=== PATIENT | female | born 1995 | race Caucasian/White ===

== ENCOUNTER 2016-03-28 16:26 | Inpatient (IN) | payer BC ==
[2016-03-28] MEDS ORDERED: RINGERS SOLUTION,LACTATED 1,000 ML IV PRN (18:01)
[2016-03-28] MEDS ORDERED: DINOPROSTONE 10 MG VAGINAL INSERT.SR PV PRN (18:17)
[2016-03-28 19:01] LABS: APPEARANCE,URINE SLIGHTLY-CLOUDY; BILIRUBIN,URINE NEGATIVE (NEGATIVE); GLUCOSE, URINE NEGATIVE (NEGATIVE); KETONES,URINE NEGATIVE (NEGATIVE); LEUKOCYTE ESTERASE,URINE TRACE (NEGATIVE); NITRITE,URINE NEGATIVE (NEGATIVE); PROTEIN,URINE NEGATIVE (NEGATIVE); URINE SPECIFIC GRAVITY 1.006; UROBILINOGEN,URINE NEGATIVE mg/dL (<2.0)
[2016-03-28 19:18] LABS: URINE BARBITURATES SCREEN NEGATIVE; URINE METHADONE SCREEN NEGATIVE; URINE PHENCYCLIDINE SCREEN NEGATIVE
[2016-03-28] MEDS ORDERED: DINOPROSTONE 10 MG VAGINAL INSERT.SR ONE (19:18)
[2016-03-28 19:22] LABS: ABSOLUTE EOSINOPHILS # (AUTO) 0.1 10^3/uL (0.0-0.6); ABSOLUTE LYMPHOCYTES (AUTO) 2.8 10^3/uL (0.5-4.7); ABSOLUTE NEUT (AUTO) 7.9 10^3/uL (1.7-8.2); BASOPHILS % (AUTO) 0.2 % (0-2); EOSINOPHILS % (AUTO) 0.8 % (0-6); HEMATOCRIT 36.4 % (36.0-47.0); HEMOGLOBIN 11.9 g/dL (12.0-15.5); HGB HCT DIFFERENCE -0.7; LYMPHOCYTES % (AUTO) 23.7 % (13-45); MEAN CORPUSCULAR HEMOGLOBIN 28.2 pg (27.0-33.4); MEAN CORPUSCULAR HGB CONC 32.8 g/dL (32.0-36.0); MEAN CORPUSCULAR VOLUME 86 fl (80-97); MONOCYTES % (AUTO) 8.5 % (3-13); RED BLOOD COUNT 4.23 10^6/uL (3.72-5.28); RED CELL DISTRIBUTION WIDTH 14.7 % (11.5-14.0); SEGMENTED NEUTROPHILS % (AUTO) 66.8 % (42-78); WHITE BLOOD COUNT 11.8 10^3/uL (4.0-10.5)
[2016-03-28] MEDS ORDERED: MAG HYDROX/AL HYDROX/SIMETH SUSP 30 ML UDCUP ONE (19:44)
--- NOTE | 2016-03-28 20:01 | L&D Flow Sheet ---
LD Flowsheet Datetime Report Generated by CPN: 03/28/2016 20:00 Datetime: 03/28/2016 19:43 Antiemetics/Antacids: Maalox PO (ml) @ 30 (Jennifer Mcfarlane, RN) Datetime: 03/28/2016 19:32 Dilatation (cm): 1.0 (Jennifer Mcfarlane RN) Effacement (%): 50 (Jennifer Mcfarlane RN) Station: -3 (Jennifer Mcfarlane RN) Exam by: Emely Lei RN (Jennifer Mcfarlane RN) Cervical Ripening Agents: Cervidil (Jennifer Mcfarlane RN) Medication Comments: Cervidil placed per protocol (Jennifer Mcfarlane RN) Datetime: 03/28/2016 19:30 Stage of : Antepartum (Jennifer Mcfarlane RN) Temperature (F): 98.8 (Jennifer Mcfarlane RN) Temperature (C): 37.1 (QS system process) Temperature Route: Oral (Jennifer Mcfarlane RN) Pain Scale: 0 (Jennifer Mcfarlane RN) Pain Presence: None/Denies (Jennifer Mcfarlane RN) Pain Type: N/A (Jennifer Mcfarlane RN) Level of Consciousness: Fully Conscious (Jennifer Mcfarlane RN) DTR's/Clonus: DTRs 2+; No Clonus (Jennifer Mcfarlane RN) Headache: Denies (Jennifer Mcfarlane RN) Breath Sounds, Left: Clear and Equal (Jennifer Mcfarlane RN) Breath Sounds, Right: Clear and Equal (Jennifer Mcfarlane RN) Nausea/Vomiting: Denies (Jennifer Mcfarlane RN) RUQ Epigastric Pain: indigestion (Jennifer Mcfarlane RN) Instructional Method: Verbal; Patient Instructed; Family/Support Person Instructed; Verbalized Understanding (Jennifer Mcfarlane RN) Plan of Care: Plan of Care Discussed; Induction (Jennifer Mcfarlane RN) Unit Routine: [place] to Room; Call Antoine; Bed; Visiting Policy; Waiting Areas; Unit Personnel; Handwashing; Monitoring; IV Pumps; Diet/Nutrition Services; Bathroom Privileges; Medications (Jennifer Mcfarlane RN) Labor/Induction: Cervical Ripening; Induction (Jennifer Mcfarlane RN) Medications: Cervical Ripening (Jennifer Mcfarlane RN) Related: Common Discomforts of ; Nutrition; Hydration; Activity and Rest (Jennifer Mcfarlane RN) LaborFlag: Antepartum (QS system process) Datetime: 03/28/2016 19:27 I/O Interventions: Up to BR (Jennifer Mcfarlane RN) Datetime: 03/28/2016 19:25 IV/Blood Work: IV Started; IV Bolus Started; New IV Bag Hung (Jennifer Mcfarlane RN) Datetime: 03/28/2016 19:03 Pain Scale: 0 (Mavelyn Lew, SN) Pain Presence: None/Denies (Mavelyn Lew, SN) Pain Type: N/A (Mavelyn Lew, SN) Pain Goal: 0 (Mavelyn Lew, SN) Pain Relief Measures: Comfort Measures (Mavelyn Lew, SN) Membrane Status: Intact (Mavelyn Lew, SN) Vaginal Bleeding: None (Mavelyn Lew, SN) Level of Consciousness: Fully Conscious (Mavelyn Lew, SN) DTR's/Clonus: DTRs 2+; No Clonus (Mavelyn Lew, SN) Headache: Denies (Mavelyn Lew, SN) Breath Sounds, Left: Clear and Equal (Mavelyn Lew, SN) Breath Sounds, Right: Clear and Equal (Mavelyn Lew, SN) Nausea/Vomiting: Denies (Mavelyn Lew, SN) RUQ Epigastric Pain: Denies (Mavelyn Lew, SN) Datetime: 03/28/2016 18:59 NBP Sys/Maren/Mean (mmHg): 109 (QS system process) : 58 (QS system process) : 77 (QS system process) Pulse: 80 (QS system process) Datetime: 03/28/2016 18:58 NBP Sys/Maren/Mean (mmHg): 127 (QS system process) : 59 (QS system process) : 85 (QS system process) Pulse: 85 (QS system process) Datetime: 03/28/2016 18:56 NBP Sys/Maren/Mean (mmHg): 126 (QS system process) : 57 (QS system process) : 82 (QS system process) Pulse: 83 (QS system process) Datetime: 03/28/2016 18:54 NBP Sys/Maren/Mean (mmHg): 129 (QS system process) : 82 (QS system process) : 100 (QS system process) Pulse: 88 (QS system process) Datetime: 03/28/2016 18:53 NBP Sys/Maren/Mean (mmHg): 127 (QS system process) : 83 (QS system process) : 99 (QS system process) Pulse: 93 (QS system process) Datetime: 03/28/2016 18:52 NBP Sys/Maren/Mean (mmHg): 119 (QS system process) : 78 (QS system process) : 94 (QS system process) Pulse: 85 (QS system process) Datetime: 03/28/2016 18:51 NBP Sys/Maren/Mean (mmHg): 120 (QS system process) : 76 (QS system process) : 92 (QS system process) Pulse: 92 (QS system process) Datetime: 03/28/2016 18:50 NBP Sys/Maren/Mean (mmHg): 124 (QS system process) : 78 (QS system process) : 96 (QS system process) Pulse: 93 (QS system process) Datetime: 03/28/2016 18:48 NBP Sys/Maren/Mean (mmHg): 117 (QS system process) : 71 (QS system process) : 87 (QS system process) Pulse: 79 (QS system process)
--- NOTE | 2016-03-29 06:23 | L&D General Admission ---
General Admit Datetime Report Generated by CPN: 03/29/2016 06:00 INFORMATION Patient Age: 21 (03/11/2016 14:14:QS system process) EDC: 03/20/2016 00:00 (03/28/2016 17:35:SN Devyn) EDC per Ultrasound: 03/14/2016 00:00 (03/28/2016 17:35:SN Devyn) LMP: 06/14/2015 00:00 (03/28/2016 17:35:SN Devyn) : 1 (03/28/2016 17:35:SN Devyn) Para: 0 (03/28/2016 17:35:SN Devyn) Term: 0 (03/28/2016 17:35:SN Devyn) : 0 (03/28/2016 17:35:SN Devyn) Spontaneous Abortions: 0 (03/28/2016 17:35:SN Devyn) Induced Abortions: 0 (03/28/2016 17:35:Mavelyn Lew, SN) Livin (03/28/2016 17:35:Mavelyn Lew, SN) Cesareans: 0 (03/28/2016 17:35:Mavelyn Lew, SN) VBACs: 0 (03/28/2016 17:35:Mavelyn Lew, SN) Ectopic: 0 (03/28/2016 17:35:Mavelyn Lew, SN) Multiple Births: 0 (03/28/2016 17:35:Mavelyn Lew, SN) Baby, Number in Womb: 1 (03/28/2016 17:35:Mavelyn Lew, SN) CARE Primary Industrial Technologist: [facility] (03/28/2016 17:35:Mavelyn Lew, SN) Month of 1st Visit: September 2015 (03/28/2016 17:35:Mavelyn Lew, SN) Adequate Care: Yes (03/28/2016 17:35:Mavelyn Lew, SN) Prepregnancy Weight (lb): 174 (03/28/2016 17:35:Mavelyn Lew, SN) Prepregnancy Weight (kg): 79.1 (03/28/2016 17:35:QS system process) Height (in): 61 (03/28/2016 18:48:QS system process) ALLERGIES Medication Allergy: No (03/28/2016 17:35:Mavelyn Lew, SN) Medication Allergies: No Known Allergies (01/12/2016) (03/11/2016 14:14:QS system process) COMMUNICATION Primary Language: Gabonese (03/28/2016 17:35:Mavelyn Lew, SN) Medical Tx Preferred Language: Gabonese (03/28/2016 17:35:Mavelyn Lew, SN) Communication Barrier(s): None (03/28/2016 17:35:Mavelyn Lew, SN) DEMOGRAPHICS Address: [address] [place] [id number] (03/11/2016 14:14:QS system process) Zipcode: [address] (03/11/2016 14:14:QS system process) Home (03/11/2016 14:14:QS system process) Work (03/28/2016 18:12:QS system process) SSN: [id number] (03/11/2016 14:14:QS system process) Next of Kin Name: HOA LEROY (03/28/2016 18:12:QS system process) Next of Kin (03/28/2016 18:12:QS system process) Next of Kin Relationship: MO (03/28/2016 18:12:QS system process) Date of : 1995 (03/11/2016 14:14:QS system process) Marital Status: (03/11/2016 14:14:QS system process) Sex: Female (03/11/2016 14:14:QS system process) Race: (03/11/2016 14:14:QS system process) Ethnicity: Non- or (03/11/2016 14:14:QS system process) Yazidism: None (03/11/2016 14:14:QS system process) DRUG AND ALCOHOL USE Alcohol: No (03/28/2016 17:35:Mavelyn Lew, SN) Cigarettes: Never Smoker. [id number] (03/28/2016 17:35:Mavelyn Lew, SN) Marijuana: No (03/28/2016 17:35:Mavelyn Lew, SN) Cocaine: No (03/28/2016 17:35:Mavelyn Lew, SN) Other Illicit Drugs: No (03/28/2016 17:35:Mavelyn Lew, SN) VACCINE HISTORY Influenza Vaccine: Yes (03/28/2016 17:35:Mavelyn Lew, SN) Influenza Date: 12/25/2015 (03/28/2016 17:35:Mavelyn Lew, SN) Pneumococcal Vaccine: No (03/28/2016 17:35:Mavelyn Lew, SN) Tetanus Vaccine: Yes (03/28/2016 17:35:Mavelyn Lew, SN) Tdap Vaccine: Yes (03/28/2016 17:35:Mavelyn Lew, SN) Tdap Date: 12/25/2015 (03/28/2016 17:35:Mavelyn Lew, SN) Hepatitis B Vaccine: Yes (03/28/2016 17:35:Mavelyn Lew, SN) [place]ge Hand: [facility] (03/28/2016 17:35:Mavelyn Lew, SN) Feeding Preference: Breast (03/28/2016 17:35:Mavelyn Lew, SN) Benefit of Breast Feed Discussed: Yes (03/28/2016 17:35:Mavelyn Lew, SN) Circumcision: Yes (03/28/2016 17:35:SN Devyn) Classes Attended: No (03/28/2016 17:35:SN Devyn) Tubal Ligation: No (03/28/2016 17:35:SN Devyn) Tubal Authorization Signed: N/A (03/28/2016 17:35:SN Devyn) Consent: N/A (03/28/2016 17:35:SN Devyn) Consent Signed: N/A (03/28/2016 17:35:SN Devyn) Pain Management Plans: Epidural (03/28/2016 17:35:SN Devyn) Plans for Labor and Delivery: None (03/28/2016 17:35:SN Devyn) Support Person: Luis Daniel Dinero (03/28/2016 17:35:SN Devyn) Support Person Relationship: (03/28/2016 17:35:SN Devyn) Cultural/Spritual Practice: No (03/28/2016 17:35:SN Devyn) Spir/Cult Dietary Needs: No (03/28/2016 17:35:SN Devyn) LIVING SITUATION/DISCHARGE PLAN Living Arrangements: House (03/28/2016 17:35:SN Devyn) Adequate Access to:: Electric; Heat; Refrigeration; Plumbing/Running water; Phone; Transportation (03/28/2016 17:35:SN Devyn) WIC Program: Yes (03/28/2016 17:35:SN Devyn) Discharge Eeg Technologist Person: Luis Daniel Dinero (03/28/2016 17:35:SN Devyn) Person to Help after Discharge: Luis Daniel Dinero (03/28/2016 17:35:SN Devyn) Currently Using Commun Resources: Yes (03/28/2016 17:35:SN Devyn) Outside Agency/Digital Marketing Consultant: No (03/28/2016 17:35:SN Devyn) Car Seat for Discharge: Yes (03/28/2016 17:35:SN Devyn) Adoption Requested: No (03/28/2016 17:35:SN Devyn) Pt Contact w/ Post : N/A (03/28/2016 17:35:SN Devyn) LABS Blood Type: O Positive (03/28/2016 17:35:SN Devyn) Antibody Screen: negative (03/28/2016 17:35:SN Devyn) Rho(G) this : Not Applicable (03/28/2016 17:35:SN Devyn) Hemoglobin: 11.9 L (03/28/2016 18:49:QS system process) Hematocrit: 36.4 (03/28/2016 18:49:QS system process) MCV: 86 (03/28/2016 18:49:QS system process) Group Beta Strep: negative (03/28/2016 17:35:SN Devyn) Gonorrhea: Negative (03/28/2016 17:35:SN Devyn) Chlamydia: Negative (03/28/2016 17:35:SN Devyn) RPR/VDRL: Nonreactive (03/28/2016 17:35:SN Devyn) HIV Exposure Test: Negative (03/28/2016 17:35:SN Devyn) Hepatitis B: Negative (03/28/2016 17:35:SN Devyn) Rubella: Immune (03/28/2016 17:35:SN Devyn) OB/PREVIOUS HISTORY LMP: 06/14/2015 00:00 (03/28/2016 17:35:SN Devyn) Previous Procedures: None (03/28/2016 17:35:SN Devyn) Current Procedures: Ultrasound; NST (03/28/2016 17:35:SN Devyn) History of Previous : No (03/28/2016 17:35:SN Devyn) History of Gestational Diabetes: No (03/28/2016 17:35:SN Devyn) History of PIH: No (03/28/2016 17:35:SN Devyn) History of Incompetent Cervix: No (03/28/2016 17:35:SN Devyn) History of Placenta Previa/Abrup: No (03/28/2016 17:35:SN Devyn) History of Macrosomia: No (03/28/2016 17:35:SN Devyn) History of IUGR: No (03/28/2016 17:35:SN Devyn) History of Hemorrhage: No (03/28/2016 17:35:SN Devyn) History of Loss/Stillborn: No (03/28/2016 17:35:SN Devyn) History of : No (03/28/2016 17:35:SN Devyn) History of D (Rh) Sensitization: No (03/28/2016 17:35:SN Devyn) History Recurrent Loss/Stillborn: No (03/28/2016 17:35:SN Devyn) History Depression/PP Depression: No (03/28/2016 17:35:SN Devyn) History of Uterine Anomaly/SAURABH: No (03/28/2016 17:35:SN Devyn) History of Infertility: No (03/28/2016 17:35:SN Devyn) History of ART Treatment: No (03/28/2016 17:35:SN Devyn) History of SAURABH: No (03/28/2016 17:35:SN Devyn) Comments Obstetrical History: G1 - current - s>d- late entry to care at 15wk (03/28/2016 17:35:SN Devyn) MEDICAL HISTORY Med Hx Diabetes: No (03/28/2016 17:35:SN Devyn) Med Hx Hypertension: No (03/28/2016 17:35:SN Devyn) Med Hx Heart Disease: No (03/28/2016 17:35:SN Devyn) Med Hx Autoimmune Disorder: No (03/28/2016 17:35:SN Devyn) Med Hx Kidney Disease/UTI: No (03/28/2016 17:35:SN Devyn) Med Hx Neurologic/Epilepsy: No (03/28/2016 17:35:SN Devyn) Med Hx Psychiatric Disorders: No (03/28/2016 17:35:SN Devyn) Med Hx Hepatitis/Liver Disease: No (03/28/2016 17:35:SN Devyn) Med Hx Varicosities/Phlebitis: No (03/28/2016 17:35:SN Devyn) Med Hx Thyroid Dysfunction: No (03/28/2016 17:35:SN Devyn) Med Hx Trauma/Violence: No (03/28/2016 17:35:SN Devyn) Med Hx Blood Transfusion: No (03/28/2016 17:35:SN Devyn) Med Hx Pulmonary (Asthma,TB): No (03/28/2016 17:35:SN Devyn) Med Hx Breast: No (03/28/2016 17:35:SN Devyn) Med Hx ESTATE PLANNING DIRECTOR Surgery: No (03/28/2016 17:35:SN Devyn) Med Hx Hospitalization/Surgery: No (03/28/2016 17:35:SN Devyn) Med Hx Anesthetic Complications: No (03/28/2016 17:35:SN Devyn) Med Hx Abnormal Pap Smear: No (03/28/2016 17:35:SN Devyn) Other Medical Diseases: No (03/28/2016 17:35:SN Devyn) Med Hx Significant Family Hx: No (03/28/2016 17:35:SN Devyn) INFECTIOUS HISTORY Inf Hx Gonorrhea: No (03/28/2016 17:35:SN Devyn) Inf Hx Chlamydia: No (03/28/2016 17:35:SN Devyn) Inf Hx Syphilis: No (03/28/2016 17:35:SN Devyn) Inf Hx HIV/AIDS: No (03/28/2016 17:35:SN Devyn) Inf Hx Human Papilloma Virus: No (03/28/2016 17:35:SN Devyn) Inf Hx Pt/Partner Genital Herpes: No (03/28/2016 17:35:SN Devyn) Inf Hx Tuberculosis/Exposure: No (03/28/2016 17:35:SN Devyn) Inf Hx Hepatitis B,C: No (03/28/2016 17:35:SN Devyn) Inf Hx Rash or Viral Illness: No (03/28/2016 17:35:SN Devyn) GENETIC HISTORY Gen Hx Age >=35 at ARELY: No (03/28/2016 17:35:SN Devyn) Gen Hx Thalassemia: No (03/28/2016 17:35:SN Devyn) Gen Hx Congenital Heart Defect: No (03/28/2016 17:35:SN Devyn) Gen Hx Neural Tube Defect: No (03/28/2016 17:35:SN Devyn) Gen Hx Down's Syndrome: No (03/28/2016 17:35:SN Devyn) Gen Hx [place]-Sachs: No (03/28/2016 17:35:SN Devyn) Gen Hx Vannessa: No (03/28/2016 17:35:SN Devyn) Gen Hx Familial Dysautonomia: No (03/28/2016 17:35:SN Devyn) Gen Hx Sickle Cell Disease/Trait: No (03/28/2016 17:35:SN Devyn) Gen Hx Hemophilia/Blood Disorder: No (03/28/2016 17:35:SN Devyn) Gen Hx Muscular Dystrophy: No (03/28/2016 17:35:SN Devyn) Gen Hx Cystic Fibrosis: No (03/28/2016 17:35:SN Devyn) Gen Hx [place] Chorea: No (03/28/2016 17:35:SN Devyn) Gen Hx Mental Retardation/Autism: No (03/28/2016 17:35:SN Devyn) Gen Hx Tested for Fragile X: No (03/28/2016 17:35:SN Devyn) Gen Hx Other Inher/Chromosomal: No (03/28/2016 17:35:SN Devyn) Gen Hx Maternal Metabolic DO: No (03/28/2016 17:35:SN Devyn) Gen Hx Pt Father or FOB Defect: No (03/28/2016 17:35:SN Devyn) Gen Hx Other Genetic History: No (03/28/2016 17:35:SN Devyn) Gen Hx Drugs/Meds since LMP: No (03/28/2016 17:35:SN Devyn)
--- NOTE | 2016-03-29 06:23 | L&D Current Admission ---
Current Admit Datetime Report Generated by CPN: 03/29/2016 06:00 ADMISSION INFORMATION Current Admit Date/Time: 03/28/2016 18:57 (03/28/2016 18:57:SN Devyn) Reason for Admission: Induction of Labor (03/28/2016 18:57:SN Devyn) Chief Complaint: Scheduled Induction of Labor (03/28/2016 19:03:SN Devyn) Medications During : Vitamin (03/28/2016 18:57:SN Devyn) EGA per Dates: 41.1 (03/28/2016 18:57:QS system process) EGA per US: 42.0 (03/28/2016 18:57:QS system process) Method of Arrival: Ambulatory (03/28/2016 18:57:SN Devyn) Admitted From: Home (03/28/2016 18:57:SN Devyn) Reason for Induction: Postterm (03/28/2016 18:57:SN Devyn) Records Available: Yes (03/28/2016 18:57:SN Devyn) General Admission Information: Reviewed; Updated; Confirmed (03/28/2016 18:57:SN Devyn) General Admission Reviewed By: Bacilio Hancock RN (03/28/2016 18:57:SN Devyn) BELONGINGS/ADVANCED DIRECTIVES Valuables/Personal Effects: Cell Phone (03/28/2016 18:57:SN Devyn) Other Belongings: See belonging sheet (03/28/2016 18:57:SN Devyn) Disposition of Belongings: Kept with Patient (03/28/2016 18:57:SN Devyn) Advance Direct for Healthcare: No, and Wants No Information (03/28/2016 18:57:SN Devyn) Durable Power of Senior Lead Developer: No (03/28/2016 18:57:SN Devyn) Living Will: No (03/28/2016 18:57:SN Devyn) Organ Donor: Yes (03/28/2016 18:57:SN Devyn) Pt Rights Information Given: Yes (03/28/2016 18:57:SN Devyn) Pt Understands Pt Rights: Yes (03/28/2016 18:57:SN Devyn) LEARNING ASSESSMENT Knowledge Level: Understands L_D Process; Understands Care Activities; Had Pre-Hospital Education; Understands Diagnosis (03/28/2016 18:57:SN Devyn) Barriers to Learning: None (03/28/2016 18:57:SN Devyn) Learning Readiness: Motivated (03/28/2016 18:57:SN Devyn) Learns Best By: 1 to 1 Instruction (03/28/2016 18:57:SN Devyn) Learning Needs: Labor and Delivery Process; Pain Management; Symptoms to Report; Treatment Plan; Medication; Diagnosis; Nutrition; Equipment; Infant Care; Community Resources (03/28/2016 18:57:SN Devyn) DOMESTIC VIOLANCE SCREENING Dom Viol Threatened/Hurt: No (03/28/2016 18:57:SN Devyn) Hx of Abuse/Neglect past 2yrs: No (03/28/2016 18:57:SN Devyn) Feel Unsafe Going Home: No (03/28/2016 18:57:SN Devyn) Addt'l Observ Indicating Abuse: No (03/28/2016 18:57:SN Devyn) Reason Unable to Complete Screen: N/A, Screen Completed (03/28/2016 18:57:SN Devyn) Considered Personal Harm/Suicide: No (03/28/2016 18:57:SN Devyn) NUTRITIONAL/FUNCTIONAL SCREENING Problem with Appetite >5 Days: No (03/28/2016 18:57:SN Devyn) Chew/Swallow Difficulties: No (03/28/2016 18:57:SN Devyn) Inappropriate Wt Gain/Loss: No (03/28/2016 18:57:SN Devyn) Presence Skin Breakdown/Ulcer: No (03/28/2016 18:57:SN Devyn) Special Diet: No (03/28/2016 18:57:SN Devyn) Pt Requests Golf Course Manager Visit: No (03/28/2016 18:57:SN Devyn) Hx of Any of the Following?: N/A (03/28/2016 18:57:SN Devyn) New Diagnosis of: N/A (03/28/2016 18:57:SN Devyn) Requires Assist w/Ambulation: No (03/28/2016 18:57:SN Devyn) Uses Assist Device to Ambulate: No (03/28/2016 18:57:SN Devyn) Pt Requires Help w/ADL's: No (03/28/2016 18:57:SN Devyn)
--- NOTE | 2016-03-29 08:00 | L&D Flow Sheet ---
LD Flowsheet Datetime Report Generated by CPN: 03/29/2016 08:00 Datetime: 03/29/2016 07:30 Dilatation (cm): 1.0 (Luly Gonzalez RN) Effacement (%): 50 (Luly Gonzalez RN) Station: 2 (Luly Gonzalez, THOMAS) Vaginal Bleeding: None (Luly Gonzalez RN) Cervix, Consistency: Soft (Luly Gonzalez RN) Cervix, Position: Midposition (Luly Gonzalez, THOMAS) Communication Comments: CERVIDIL REMOVED PER RN (Luly Gonzalez RN) Datetime: 03/29/2016 07:19 NBP Sys/Maren/Mean (mmHg): 126 (QS system process) : 69 (QS system process) : 92 (QS system process) Pulse: 75 (QS system process) LaborFlag: Antepartum (QS system process) Datetime: 03/29/2016 07:13 Level of Consciousness: Fully Conscious (Luly Halsmer, RN) DTR's/Clonus: DTRs 2+ (Luly Halsmer, RN) Headache: Denies (Luly Halsmer, RN) Breath Sounds, Left: Clear and Equal (Luly Halsmer, RN) Breath Sounds, Right: Clear and Equal (Luly Halsmer, RN) Nausea/Vomiting: Denies (Luly Halsmer, RN) RUQ Epigastric Pain: Denies (Luly Halsmer, RN) Datetime: 03/29/2016 07:12 I/O Interventions: Up to BR (Jennifer Errichiello, RN) Datetime: 03/29/2016 07:10 Communication Comments: Report given to Denisha Gonzalez RN. Care relinquished at this time. (Jennifer Mcfarlane RN) Datetime: 03/29/2016 06:59 Stage of : Antepartum (Jennifer Mcfarlane RN) Monitor Mode: External (Jennifer Mcfarlane RN) Frequency (min): 3-6 (Jennifer Mcfarlane RN) Quality: Mild (Jennifer Mcfarlane RN) Duration (sec): 70-110 (Jennifer Mcfarlane RN) Resting Tone (Palpate): Relaxed (Jennifer Mcfarlane RN) Monitor Mode: External US (Jennifer Mcfarlane RN) FHR Baseline Rate : 135 (Jennifer Mcfarlane RN) FHR Baseline Changes: No Baseline Change (Jennifer Mcfarlane RN) Variability: Moderate 6-25 bpm (Jennifer Mcfarlane RN) Accelerations: 15X15 (Jennifer Mcfarlane RN) Decelerations: None (Jennifer Mcfarlane RN) Pain Presence: None/Denies (Jennifer Mcfarlane RN) Patient Position/Activity: Right Lateral; Semi-Fowlers (Jennifer Mcfarlane RN) Communication: RN Reviewed Strip (Jennifer Mcfarlane RN) LaborFlag: Antepartum (QS system process) Datetime: 03/29/2016 06:30 Stage of : Antepartum (Jennifer Mcfarlane RN) Monitor Mode: External (Jennifer Mcfarlane RN) Frequency (min): 2-7 (Jennifer Mcfarlane RN) Quality: Mild (Jennifer Mcfarlane RN) Duration (sec): 50-80 (Jennifer Mcfarlane RN) Resting Tone (Palpate): Relaxed (Jennifer Mcfarlane RN) Monitor Mode: External US (Jennifer Mcfarlane RN) FHR Baseline Rate : 135 (Jennifer Mcfarlane RN) FHR Baseline Changes: No Baseline Change (Jennifer Mcfarlane RN) Variability: Moderate 6-25 bpm (Jennifer Mcfarlane RN) Accelerations: 15X15 (Jennifer Mcfarlane RN) Decelerations: None (Jennifer Mcfarlane RN) Communication: RN Reviewed Strip (eJnnifer Mcfarlane RN) Datetime: 03/29/2016 06:15 Monitor Interventions for UA: [place] Adjusted (Jennifer Mcfarlane RN) Monitor Interventions for FHR: Ultrasound Adjusted (Jennifer Mcfarlane RN) Datetime: 03/29/2016 06:00 Stage of : Antepartum (Jennifer Mcfarlane RN) Frequency (min): 5-6 (Jennifer Mcfarlane RN) Duration (sec): 50-80 (Jennifer Mcfarlane RN) Monitor Mode: External US (Jennifer Mcfarlane RN) FHR Baseline Rate : 150 (Jennifer Mcfarlane RN) FHR Baseline Changes: No Baseline Change (Jennifer Mcfarlane RN) Variability: Moderate 6-25 bpm (Jennifer Mcfarlane RN) Accelerations: 15X15 (Jennifer Mcfarlane RN) Decelerations: None (Jennifer Mcfarlane RN) Pain Coping: Sleeping (Jennifer Mcfarlane RN) Communication: RN Reviewed Strip (eJnnifer Mcfarlane RN) Datetime: 03/29/2016 05:30 Stage of : Antepartum (Jennifer Mcfarlane RN) Monitor Mode: External (Jennifer Mcfarlane RN) Monitor Interventions for UA: [place] Adjusted (Jennifer Mcfarlane RN) Frequency (min): 5 (Jennifer Mcfarlane RN) Quality: Mild (Jennifer Mcfarlane RN) Duration (sec): 80-120 (Jennifer Mcfarlane RN) Resting Tone (Palpate): Relaxed (Jennifer Mcfarlane RN) Monitor Mode: External US (Jennifer Mcfarlane RN) FHR Baseline Rate : 135 (Jennifer Mcfarlane RN) FHR Baseline Changes: No Baseline Change (Jennifer Mcfarlane RN) Variability: Moderate 6-25 bpm (Jennifer Mcfarlane RN) Accelerations: 15X15 (Jennifer Mcfarlane RN) Decelerations: None (Jennifer Mcfarlane RN) Pain Coping: Sleeping (Jennifer Mcfarlane RN) Communication: RN at Bedside; RN Reviewed Strip (Jennifer Mcfaralne RN) Datetime: 03/29/2016 05:21 Monitor Interventions for UA: [place] Adjusted (Jennifer Mcfarlane RN) Monitor Interventions for FHR: Ultrasound Adjusted (Jennifer Mcfarlane RN) Patient Position/Activity: Right Lateral; Semi-Fowlers (Jennifer Mcfarlane RN) Datetime: 03/29/2016 05:00 Stage of : Antepartum (Jennifer Mcfarlane RN) Monitor Mode: External (Jennifer Mcfarlane RN) Frequency (min): 5-7 (Jennifre Mcfarlane RN) Quality: Mild (Jennifer Mcfarlane RN) Duration (sec): 70-120 (Jennifer Mcfarlane RN) Resting Tone (Palpate): Relaxed (Jennifer Mcfarlane RN) Monitor Mode: External US (Jennifer Mcfarlane RN) FHR Baseline Rate : 135 (Jennifer Mcfarlane RN) FHR Baseline Changes: No Baseline Change (Jennifer Mcfarlane RN) Variability: Moderate 6-25 bpm (Jennifer Mcfarlane RN) Accelerations: 15X15 (Jennifer Mcfarlane RN) Decelerations: None (Jennifer Mcfarlane RN) Pain Coping: Sleeping (Jennifer Mcfarlane RN) Communication: RN Reviewed Strip (Jennifer Mcfarlane RN) Datetime: 03/29/2016 04:49 I/O Interventions: Up to BR (Jennifer Mcfarlane RN) Datetime: 03/29/2016 04:30 Stage of : Antepartum (Jennifer Mcfarlane RN) Monitor Mode: External (Jennifer Mcfarlane RN) Frequency (min): 5-7 (Jennifer Mcfarlane RN) Quality: Mild (Jennifer Mcfarlane RN) Duration (sec): 70-120 (Jennifer Mcfarlane RN) Resting Tone (Palpate): Relaxed (Jennifer Mcfarlane RN) Monitor Mode: External US (Jennifer Mcfarlane RN) FHR Baseline Rate : 135 (Jennifer Mcfarlane RN) FHR Baseline Changes: No Baseline Change (Jennifer Mcfarlane RN) Variability: Moderate 6-25 bpm (Jennifer Mcfarlane RN) Accelerations: 15X15 (Jennifer Mcfarlane RN) Decelerations: None (Jennifer Mcfarlane RN) Pain Coping: Sleeping (Jennifer Mcfarlane RN) Patient Position/Activity: Left Tilt; Semi-Fowlers (Jennifer Mcfarlane RN) Communication: RN Reviewed Strip (Jennifer Mcfarlane RN) Datetime: 03/29/2016 03:59 Stage of : Antepartum (Jennifer Mcfarlane RN) Frequency (min): 1.5-6 (Jennifer Mcfarlane RN) Duration (sec): 50-110 (Jennifer Mcfarlane RN) Monitor Mode: External US (Jennifer Mcfarlane RN) FHR Baseline Rate : 135 (Jennifer Mcfarlane RN) FHR Baseline Changes: No Baseline Change (Jennifer Mcfarlane RN) Variability: Moderate 6-25 bpm (Jennifer Mcfarlane RN) Accelerations: 15X15 (Jennifer Mcfarlane RN) Decelerations: None (Jennifer Mcfarlane RN) Pain Coping: Sleeping (Jennifer Mcfarlane RN) Communication: RN at Bedside; RN Reviewed Strip (Jennifer Mcfarlane RN) Datetime: 03/29/2016 03:30 Stage of : Antepartum (Jennifer Mcfarlane RN) Frequency (min): x2 (Jennifer Mcfarlane RN) Quality: Mild (Jennifer Mcfarlane RN) Duration (sec): 90-110 (Jennifer Mcfarlane RN) Resting Tone (Palpate): Relaxed (Jennifer Mcfarlane RN) Monitor Mode: External US (Jennifer Mcfarlane RN) FHR Baseline Rate : 135 (Jennifer Mcfarlane RN) FHR Baseline Changes: No Baseline Change (Jennifer Mcfarlane RN) Variability: Moderate 6-25 bpm (Jennifer Mcfarlane RN) Accelerations: 15X15 (Jennifer Mcfarlane RN) Decelerations: None (Jennifer Mcfarlane RN) Pain Coping: Sleeping (Jennifer Mcfarlane RN) Communication: RN Reviewed Strip (Jennifer Mcfarlane RN) Datetime: 03/29/2016 03:00 Stage of : Antepartum (Jennifer Mcfarlane RN) Monitor Mode: External (Jennifer Mcfarlane RN) Frequency (min): 2-6 (Jennifer Mcfarlane RN) Quality: Mild (Jennifer Mcfarlane RN) Duration (sec): 60-80 (Jennifer Mcfarlane RN) Resting Tone (Palpate): Relaxed (Jennifer Mcfarlane RN) Monitor Mode: External US (Jennifer Mcfarlane RN) FHR Baseline Rate : 135 (Jennifer Mcfarlane RN) FHR Baseline Changes: No Baseline Change (Jennifer Mcfarlane RN) Variability: Moderate 6-25 bpm (Jennifer Mcfarlane RN) Accelerations: 15X15 (Jennifer Mcfarlane RN) Decelerations: None (Jennifer Mcfarlane RN) Pain Coping: Sleeping (Jennifer Mcfarlane RN) Patient Position/Activity: Left Lateral; Semi-Fowlers (Jennifer Mcfarlane RN) Communication: RN Reviewed Strip (Jennifer Mcfarlane RN) Datetime: 03/29/2016 02:49 I/O Interventions: Up to BR (Jennifer Mcfarlane RN) Datetime: 03/29/2016 02:30 Stage of : Antepartum (Jennifer Mcfarlane RN) Monitor Mode: External (Jennifer Mcfarlane RN) Frequency (min): 6-7 (Jennifer Mcfarlane RN) Quality: Mild (Jennifer Mcfarlane RN) Duration (sec): 70-110 (Jennifer Mcfarlane RN) Resting Tone (Palpate): Relaxed (Jennifer Mcfarlane RN) Monitor Mode: External US (Jennifer Mcfarlane RN) FHR Baseline Rate : 135 (Jennifer Mcfarlane RN) FHR Baseline Changes: No Baseline Change (Jennifer Mcfarlane RN) Variability: Moderate 6-25 bpm (Jennifer Mcfarlane RN) Accelerations: 15X15 (Jennifer Mcfarlane RN) Decelerations: None (Jennifer Mcfarlane RN) Pain Coping: Sleeping (Jennifer Mcfarlane RN) Patient Position/Activity: Left Lateral; Semi-Fowlers (Jennifer Mcfarlane RN) Communication: RN Reviewed Strip (Jennifer Mcfarlane RN) Datetime: 03/29/2016 02:00 Stage of : Antepartum (Jennifer Mcfarlane RN) Monitor Mode: External (Jennifer Mcfarlane RN) Frequency (min): x2 (Jennifer Mcfarlane RN) Quality: Mild (Jennifer Mcfarlane RN) Duration (sec): 60-120 (Jennifer Mcfarlane RN) Resting Tone (Palpate): Relaxed (Jennifer Mcfarlane RN) Monitor Mode: External US (Jennifer Mcfarlane RN) FHR Baseline Rate : 135 (Jennifer Mcfarlane RN) FHR Baseline Changes: No Baseline Change (Jennifer Mcfarlane RN) Variability: Moderate 6-25 bpm (Jennifer Mcfarlane RN) Accelerations: 15X15 (Jennifer Mcfarlane RN) Decelerations: None (Jennifer Mcfarlane RN) Pain Coping: Sleeping (Jennifer Mcfarlane RN) Patient Position/Activity: Left Tilt; Semi-Fowlers (Jennifer Mcfarlane RN) Communication: RN Reviewed Strip (Jennifer Mcfarlane RN) Datetime: 03/29/2016 01:30 Stage of : Antepartum (Jennifer Mcfarlane RN) Monitor Mode: External (Jennifer Mcfarlane RN) Frequency (min): 7 (Jennifer Mcfarlane RN) Quality: Mild (Jennifer Mcfarlane RN) Duration (sec): 110-130 (Jennifer Mcfarlane RN) Resting Tone (Palpate): Relaxed (Jennifer Mcfarlane RN) Monitor Mode: External US (Jennifer Mcfarlane RN) FHR Baseline Rate : 135 (Jennifer Mcfarlane RN) FHR Baseline Changes: No Baseline Change (Jennifer Mcfarlane RN) Variability: Moderate 6-25 bpm (Jennifer Mcfarlane RN) Accelerations: 15X15 (Jennifer Mcfarlane RN) Decelerations: None (Jennifer Mcfarlane RN) Pain Coping: Sleeping (Jennifer Mcfarlane RN) Patient Position/Activity: Left Tilt; Semi-Fowlers (Jennifer Mcfarlane RN) Communication: RN Reviewed Strip (Jennifer Mcfarlane RN) Datetime: 03/29/2016 01:00 Stage of : Antepartum (Jennifer Mcfarlane RN) Monitor Mode: External (Jennifer Mcfarlane RN) Frequency (min): x1 (Jennifer Mcfarlane RN) Quality: Mild (Jennifer Mcfarlane RN) Duration (sec): 60 (Jennifer Mcfarlane RN) Resting Tone (Palpate): Relaxed (Jennifer Mcfarlane RN) Monitor Mode: External US (Jennifer Mcfarlane RN) Monitor Interventions for FHR: Ultrasound Adjusted (Jennifer Mcfarlane RN) FHR Baseline Rate : 135 (Jennifer Mcfarlane RN) FHR Baseline Changes: No Baseline Change (Jennifer Mcfarlane RN) Variability: Moderate 6-25 bpm (Jennifer Mcfarlane RN) Accelerations: 15X15 (Jennifer Mcfarlane RN) Decelerations: None (Jennifer Mcfarlane RN) Pain Coping: Sleeping (Jennifer Mcfarlane RN) Patient Position/Activity: Left Lateral (Jennifer Mcfarlane RN) Communication: RN Reviewed Strip (Jennifer Mcfarlane RN) Datetime: 03/29/2016 00:48 Monitor Interventions for UA: [place] Adjusted (Jennifer Mcfarlane RN) Monitor Interventions for FHR: Ultrasound Adjusted (Jennifer Mcfarlane RN) Datetime: 03/29/2016 00:40 NBP Sys/Maren/Mean (mmHg): 103 (QS system process) : 54 (QS system process) : 75 (QS system process) Pulse: 83 (QS system process) LaborFlag: Antepartum (QS system process) Datetime: 03/29/2016 00:30 Stage of : Antepartum (Jennifer Mcfarlane RN) Monitor Mode: External (Jennifer Mcfarlane RN) Monitor Interventions for UA: [place] Adjusted (Jennifer Mcfarlane RN) Frequency (min): x3 (Jennifer Mcfarlane RN) Quality: Mild (Jennifer Mcfarlane RN) Duration (sec): 70-120 (Jennifer Mcfarlane RN) Resting Tone (Palpate): Relaxed (Jennifer Mcfarlane RN) Monitor Mode: External US (Jennifer Mcfarlane RN) Monitor Interventions for FHR: Ultrasound Adjusted (Jennifer Mcfarlane RN) FHR Baseline Rate : 145 (Jennifer Mcfarlane RN) FHR Baseline Changes: No Baseline Change (Jennifer Mcfarlane RN) Variability: Moderate 6-25 bpm (Jennifer Mcfarlane RN) Accelerations: 15X15 (Jennifer Mcfarlane RN) Decelerations: None (Jennifer Mcfarlane RN) Pain Presence: None/Denies (Jennifer Mcfarlane RN) Patient Position/Activity: Left Tilt; Semi-Fowlers (Jennifer Mcfarlane RN) Communication: RN Reviewed Strip (Jennifer Mcfarlane RN) LaborFlag: Antepartum (QS system process) Datetime: 03/29/2016 00:15 I/O Interventions: Up to BR (Jennifer Mcfarlane RN) Datetime: 03/29/2016 00:00 Stage of : Antepartum (Jennifer Mcfarlane RN) Monitor Mode: External (Jennifer Mcfarlane RN) Frequency (min): 4-8 (Jennifer Mcfarlane RN) Quality: Mild (Jennifer Mcfarlane RN) Duration (sec): 60-130 (Jennifer Mcfarlane RN) Resting Tone (Palpate): Relaxed (Jennifer Mcfarlane RN) Monitor Mode: External US (Jennifer Mcfarlane RN) Monitor Interventions for FHR: Ultrasound Adjusted (Jennifer Mcfarlane RN) FHR Baseline Rate : 140 (Jennifer Mcfarlane RN) FHR Baseline Changes: No Baseline Change (Jeninfer Mcfarlane RN) Variability: Moderate 6-25 bpm (Jennifer Mcfarlane RN) Accelerations: 15X15 (Jennifer Mcfarlane RN) Decelerations: None (Jennifer Mcfarlane RN) Pain Presence: None/Denies (Jennifer Mcfarlane RN) Patient Position/Activity: Left Tilt; Semi-Fowlers (Jennifer Mcfarlane RN) Communication: RN Reviewed Strip (Jennifer Mcfarlane RN) LaborFlag: Antepartum (QS system process) Datetime: 03/28/2016 23:30 Stage of : Antepartum (Jennifer Mcfarlane RN) Monitor Mode: External (Jennifer Mcfarlane RN) Frequency (min): 1.5-5 (Jennifer Mcfarlane RN) Quality: Mild (Jennifer Mcfarlane RN) Duration (sec): 50-110 (Jennifer Mcfarlane RN) Resting Tone (Palpate): Relaxed (Jennifer Mcfarlane RN) Monitor Mode: External US (Jennifer Mcfarlane RN) FHR Baseline Rate : 145 (Jennifer Mcfarlane RN) FHR Baseline Changes: No Baseline Change (Jennifer Mcfarlane RN) Variability: Moderate 6-25 bpm (Jennifer Mcfarlane RN) Accelerations: 15X15 (Jennifer Mcfarlane RN) Decelerations: None (Jennifer Mcfarlane RN) Pain Presence: None/Denies (Jennifer Mcfarlane RN) Patient Position/Activity: Left Tilt; Semi-Fowlers (Jennifer Mcfarlane RN) Communication: RN at Bedside; RN Reviewed Strip (Jennifer Mcfarlane RN) LaborFlag: Antepartum (QS system process) Datetime: 03/28/2016 23:00 Stage of : Antepartum (Jennifer Mcfarlane RN) Monitor Mode: External (Jennifer Mcfarlane RN) Frequency (min): occasional (Jennifer Mcfarlane RN) Quality: Mild (Jennifer Mcfarlane RN) Duration (sec): 60-110 (Jennifer Mcfarlane RN) Resting Tone (Palpate): Relaxed (Jennifer Mcfarlane RN) Monitor Mode: External US (Jennifer Mcfarlane RN) FHR Baseline Rate : 150 (Jennifer Mcfarlane RN) FHR Baseline Changes: No Baseline Change (Jennifer Mcfarlane RN) Variability: Moderate 6-25 bpm (Jennifer Mcfarlane RN) Accelerations: 15X15 (Jennifer Mcfarlane RN) Decelerations: None (Jennifer Mcfarlane RN) Communication: RN Reviewed Strip (Jennifer Mcfarlane RN) Datetime: 03/28/2016 22:56 I/O Interventions: Up to BR (Jennifer Mcfarlane RN) Datetime: 03/28/2016 22:30 Stage of : Antepartum (Jennifer Mcfarlane RN) Monitor Mode: External (Jennifer Mcfarlane RN) Monitor Interventions for UA: [place] Adjusted (Jennifer Mcfarlane RN) Frequency (min): 3-8 (Jennifer Mcfarlane RN) Quality: Mild (Jennifer Mcfarlane RN) Duration (sec): 50-110 (Jennifer Mcfarlane RN) Resting Tone (Palpate): Relaxed (Jennifer Mcfarlane RN) Monitor Mode: External US (Jennifer Mcfarlane RN) Monitor Interventions for FHR: Ultrasound Adjusted (Jennifer Mcfarlane RN) FHR Baseline Rate : 155 (Jennifer Mcfarlane RN) FHR Baseline Changes: No Baseline Change (Jennifer Mcfarlane RN) Variability: Moderate 6-25 bpm (Jennifer Mcfarlane RN) Accelerations: 15X15 (Jennifer Mcfarlane RN) Decelerations: None (Jennifer Mcfarlane RN) Pain Presence: None/Denies (Jennifer Mcfarlane RN) Patient Position/Activity: Left Tilt; Semi-Fowlers (Jennifer Mcfarlane RN) Communication: RN Reviewed Strip (Jennifer Mcfarlane RN) LaborFlag: Antepartum (QS system process) Datetime: 03/28/2016 22:00 Stage of : Antepartum (Jennifer Mcfarlane RN) Frequency (min): 4-8 (Jennifer Mcfarlane RN) Duration (sec): 70-110 (Jennifer Mcfarlane RN) Monitor Mode: External US (Jennifer Mcfarlane RN) Monitor Interventions for FHR: Ultrasound Adjusted (Jennifer Mcfarlane RN) FHR Baseline Rate : 150 (Jennifer Mcfarlane RN) FHR Baseline Changes: No Baseline Change (Jennifer Mcfarlane RN) Variability: Moderate 6-25 bpm (Jennifer Mcfarlane RN) Accelerations: 15X15 (Jennifer Mcfarlane RN) Decelerations: None (Jennifer Mcfarlane RN) Pain Presence: None/Denies (Jennifer Mcfarlane RN) Patient Position/Activity: Left Tilt; Semi-Fowlers (Jennifer Mcfarlane RN) Communication: RN Reviewed Strip (Jennifer Mcfarlane RN) LaborFlag: Antepartum (QS system process) Datetime: 03/28/2016 21:41 I/O Interventions: Up to BR (Jennifer Mcfarlane RN) Datetime: 03/28/2016 21:30 Stage of : Antepartum (Jennifer Mcfarlane RN) Monitor Mode: External (Jennifer Mcfarlane RN) Monitor Interventions for UA: [place] Adjusted (Jennifer Mcfarlane RN) Frequency (min): 5-8 (Jennifer Mcfarlane RN) Quality: Mild (Jennifer Mcfarlane RN) Duration (sec): 70-110 (Jennifer Mcfarlane RN) Resting Tone (Palpate): Relaxed (Jennifer Mcfarlane RN) Monitor Mode: External US (Jennifer Mcfarlane RN) Monitor Interventions for FHR: Ultrasound Adjusted (Jennifer Mcfarlane RN) FHR Baseline Rate : 155 (Jennifer Mcfarlane RN) FHR Baseline Changes: No Baseline Change (Jennifer Mcfarlane RN) Variability: Moderate 6-25 bpm (Jennifer Mcfarlane RN) Accelerations: 15X15 (Jennifer Mcfarlane RN) Decelerations: None (Jennifer Mcfarlane RN) Pain Presence: None/Denies (Jennifer Mcfarlane RN) Patient Position/Activity: Left Tilt; Semi-Fowlers (Jennifer Mcfarlane RN) Communication: RN Reviewed Strip (Jennifer Mcfarlane RN) LaborFlag: Antepartum (QS system process) Datetime: 03/28/2016 21:01 NBP Sys/Maren/Mean (mmHg): 118 (QS system process) : 72 (QS system process) : 89 (QS system process) Pulse: 72 (QS system process) LaborFlag: Antepartum (QS system process) Datetime: 03/28/2016 21:00 Stage of : Antepartum (Jennifer Mcfarlane RN) Monitor Mode: External (Jennifer Mcfarlane RN) Monitor Interventions for UA: [place] Adjusted (Jennifer Mcfarlane RN) Frequency (min): 5-10 (Jennifer Mcfarlane RN) Quality: Mild (Jennifer Mcfarlane RN) Duration (sec): 60-110 (Jennifer Mcfarlane RN) Resting Tone (Palpate): Relaxed (Jennifer Mcfarlane RN) Monitor Mode: External US (Jennifer Mcfarlane RN) Monitor Interventions for FHR: Ultrasound Adjusted (Jennifer Mcfarlane RN) FHR Baseline Rate : 155 (Jennifer Mcfarlane RN) FHR Baseline Changes: No Baseline Change (Jennifer Mcfarlane RN) Variability: Moderate 6-25 bpm (Jennifer Mcfarlane RN) Accelerations: 15X15 (Jennifer Mcfarlane RN) Decelerations: None (Jennifer Mcfarlane RN) Pain Presence: None/Denies (Jennifer Mcfarlane RN) Patient Position/Activity: Left Tilt (Jennifer Mcfarlane RN) Communication: RN Reviewed Strip (Jennifer Mcfarlane RN) LaborFlag: Antepartum (QS system process) Datetime: 03/28/2016 20:30 Stage of : Antepartum (Jennifer Mcfarlane RN) Monitor Mode: External (Jennifer Mcfarlane RN) Monitor Interventions for UA: [place] Adjusted (Jennifer Mcfarlane RN) Frequency (min): 1.5-5 (Jennifer Mcfarlane RN) Quality: Mild (Jennifer Mcfarlane RN) Duration (sec): 40-110 (Jennifer Mcfarlane RN) Resting Tone (Palpate): Relaxed (Jennifer Mcfarlane RN) Monitor Mode: External US (Jennifer Mcfarlane RN) Monitor Interventions for FHR: Ultrasound Adjusted (Jennifer Mcfarlane RN) FHR Baseline Rate : 155 (Jennifer Mcfarlane RN) FHR Baseline Changes: No Baseline Change (Jennifer Mcfarlane RN) Variability: Moderate 6-25 bpm (Jennifer Mcfarlane RN) Accelerations: 15X15 (Jennifer Mcfarlane RN) Decelerations: None (Jennifer Mcfarlane RN) Pain Presence: None/Denies (Jennifer Mcfarlane RN) Patient Position/Activity: Left Tilt; Semi-Fowlers (Jennifer Mcfarlane RN) Communication: RN at Bedside; RN Reviewed Strip (Jennifer Mcfarlane RN) LaborFlag: Antepartum (QS system process) Datetime: 03/28/2016 20:02 NBP Sys/Maren/Mean (mmHg): 113 (QS system process) : 71 (QS system process) : 88 (QS system process) Pulse: 88 (QS system process) LaborFlag: Antepartum (QS system process) Datetime: 03/28/2016 20:00 Stage of : Antepartum (Jennifer Mcfarlane RN) Monitor Mode: External (Jennifer Mcfarlane RN) Monitor Interventions for UA: [place] Adjusted (Jennifer Mcfarlane RN) Frequency (min): 1.5-6 (Jennifer Mcfarlane RN) Quality: Mild (Jennifer Mcfarlane RN) Duration (sec): 50-150 (Jennifer Mcfarlane RN) Resting Tone (Palpate): Relaxed (Jennifer Mcfarlane RN) Monitor Mode: External US (Jennifer Mcfarlane RN) Monitor Interventions for FHR: Ultrasound Adjusted (Jennifer Mcfarlane RN) FHR Baseline Rate : 160 (Jennifer Mcfarlane RN) FHR Baseline Changes: No Baseline Change (Jennifer Mcfarlane RN) Variability: Moderate 6-25 bpm (Jennifer Mcfarlane RN) Accelerations: 15X15 (Jennifer Mcfarlane RN) Decelerations: None (Jennifer Mcfarlane RN) Pain Presence: None/Denies (Jennifer Mcfarlane, THOMAS) Patient Position/Activity: Left Tilt; Semi-Fowlers (Jennifer Mcfarlane RN) Communication: RN Reviewed Strip (Jennifer Mcfarlane RN) LaborFlag: Antepartum (QS system process)
[2016-03-29] MEDS ORDERED: OXYTOCIN/NORMAL SALINE 20 UNIT/1,000 ML RTUINJ ONE ×2 (08:12→21:46)
--- NOTE | 2016-03-29 12:01 | L&D Flow Sheet ---
LD Flowsheet Datetime Report Generated by CPN: 03/29/2016 12:00 Datetime: 03/29/2016 11:45 Monitor Mode: External; Palpation (Luly Halsmer, RN) Frequency (min): 2-4 (Luly Halsmer, RN) Quality: Moderate (Luly Halsmer, RN) Duration (sec): 60-80 (Luly Halsmer, RN) Resting Tone (Palpate): Relaxed (Luly Halsmer, RN) Monitor Mode: External US (Luly Halsmer, RN) FHR Baseline Rate : 140 (Luly Halsmer, RN) Variability: Moderate 6-25 bpm (Luly Halsmer, RN) Decelerations: None (Luly Halsmer, RN) Datetime: 03/29/2016 11:37 Membrane Status: Ruptured (Luly Gonzalez RN) Membranes Rupture Method: Spontaneous (Luly Gonzalez THOMAS) Amniotic Fluid Color: Clear (Luly Gonzalez THOMAS) Amniotic Fluid Amount: Small (Luly Gonzalez RN) Amniotic Fluid Odor: Normal (Luly Gonzalez RN) Datetime: 03/29/2016 11:34 I/O Interventions: Up to BR (Luly Gonzalez RN) Datetime: 03/29/2016 11:30 Monitor Mode: External; Palpation (Luly Gonzalez THOMAS) Frequency (min): 2-4 (Lulybe Gonzalez RN) Quality: Moderate (Lulybe Gonzalez RN) Duration (sec): 50-70 (Luly Gonzalez RN) Resting Tone (Palpate): Relaxed (Luly Gonzalez RN) Monitor Mode: External US (Luly Gonzalez RN) FHR Baseline Rate : 140 (Luly Gonzalez RN) Variability: Moderate 6-25 bpm (Luly Gonzalez RN) Decelerations: Early (Luly Gonzalez RN) Pitocin (milliunit): Pitocin Remains (milliunits) @ (Annotations: 16) (Luly Gonzalez RN) Datetime: 03/29/2016 11:19 NBP Sys/Maren/Mean (mmHg): 104 (QS system process) : 57 (QS system process) : 77 (QS system process) Pulse: 68 (QS system process) Respirations: 16 (Luly Gonzalez RN) Temperature (F): 98.1 (Luly Gonzalez RN) Temperature (C): 36.7 (QS system process) Temperature Route: Oral (Luly Gonzalez RN) Pain Scale: 2 (Luly Gonzalez RN) Pain Presence: Intermittent (Luly Gonzalez RN) Pain Type: Contraction (Luly Gonzalez RN) Pain Location: Abdomen (Luly Gonzalez RN) Pain Relief Measures: Comfort Measures (Luly Gonzalez RN) Pain Coping: Talking Through Contractions; Breathing Through Contractions (Luly Gonzalez RN) LaborFlag: Antepartum (QS system process) Datetime: 03/29/2016 11:15 Monitor Mode: External (Luly Halsmer, RN) Frequency (min): 2-4 (Luly Halsmer, RN) Quality: Mild/Moderate (Luly Halsmer, RN) Duration (sec): 40-60 (Luly Halsmer, RN) Resting Tone (Palpate): Relaxed (Luly Halsmer, RN) Monitor Mode: External US (Luly Halsmer, RN) FHR Baseline Rate : 140 (Luly Halsmer, RN) FHR Baseline Changes: No Baseline Change (Luly Halsmer, RN) Variability: Moderate 6-25 bpm (Luly Halsmer, RN) Decelerations: None (Luly Halsmer, RN) Pitocin (milliunit): Pitocin Increased to (milliunits) @ (Annotations: 16) (Luly Halsmer, RN) Datetime: 03/29/2016 11:00 Monitor Mode: External; Palpation (Luly Halsmer, RN) Frequency (min): 2-3 (Luly Halsmer, RN) Quality: Mild/Moderate (Luly Halsmer, RN) Duration (sec): 50-70 (Luly Halsmer, RN) Resting Tone (Palpate): Relaxed (Luly Halsmer, RN) Monitor Mode: External US (Luly Halsmer, RN) FHR Baseline Rate : 140 (Luly Parikher, RN) Variability: Moderate 6-25 bpm (Luly Halsmer, RN) Decelerations: None (Luly Parikher, RN) Pitocin (milliunit): Pitocin Remains (milliunits) @ (Annotations: 14) (Luly Parikher, RN) Datetime: 03/29/2016 10:51 NBP Sys/Maren/Mean (mmHg): 104 (QS system process) : 51 (QS system process) : 73 (QS system process) Pulse: 77 (QS system process) Respirations: 14 (Luly Parikher, RN) LaborFlag: Antepartum (QS system process) Datetime: 03/29/2016 10:45 Monitor Mode: External (Luly Gonzalez RN) Frequency (min): 2-4 (Luly Gonzalez, RN) Quality: Mild (Luly Parikher, RN) Duration (sec): 50-70 (Luly Gonzlaez, RN) Resting Tone (Palpate): Relaxed (Luly Gonzalez RN) Monitor Mode: External US (Luly Gonzalez RN) FHR Baseline Rate : 140 (Luly Gonzalez RN) Variability: Moderate 6-25 bpm (Luly Gonzalez RN) Decelerations: None (Luly Gonzalez RN) Pitocin (milliunit): Pitocin Increased to (milliunits) @ (Annotations: 14) (Luly Gonzalez, THOMAS) Datetime: 03/29/2016 10:30 Monitor Mode: External (Luly Gonzalez RN) Frequency (min): 2-3 (Luly Gonzalez RN) Quality: Mild (Luly Gonzalez RN) Duration (sec): 50-70 (Luly Gonzalez RN) Resting Tone (Palpate): Relaxed (Luly Gonzalez RN) Monitor Mode: External US (Luly Gonzalez RN) Monitor Interventions for FHR: Ultrasound Adjusted (Luly Gonzalez RN) FHR Baseline Rate : 140 (Luly Gonzalez RN) Variability: Moderate 6-25 bpm (Luly Gonzalez RN) Decelerations: None (Luly Gonzalze RN) Pitocin (milliunit): Pitocin Remains (milliunits) @ (Annotations: 12) (Luly Gonzalez RN) Patient Position/Activity: Right Extreme (Luly Gonzalez RN) Datetime: 03/29/2016 10:21 NBP Sys/Maren/Mean (mmHg): 111 (QS system process) : 65 (QS system process) : 84 (QS system process) Pulse: 62 (QS system process) Respirations: 16 (Luly Parikher, RN) LaborFlag: Antepartum (QS system process) Datetime: 03/29/2016 10:19 Monitor Interventions for FHR: Ultrasound Adjusted (Luly Parikher, RN) Datetime: 03/29/2016 10:15 Monitor Mode: External (Luly Reneesmer, RN) Frequency (min): 2-3 (Luly Reneesmer, RN) Quality: Mild (Luly Halsmer, RN) Duration (sec): 50-70 (Luly Parikher, RN) Resting Tone (Palpate): Relaxed (Luly Halsmer, RN) Monitor Mode: External US (Luly Parikher, RN) FHR Baseline Rate : 140 (Luly Parikher, RN) Variability: Moderate 6-25 bpm (Luly Halsmer, RN) Decelerations: None (Luly Halsmer, RN) Pitocin (milliunit): Pitocin Increased to (milliunits) @ (Annotations: 12) (Luly Halcristinaer, RN) Datetime: 03/29/2016 10:01 I/O Interventions: Up to BR (Luly Halsmer, RN) Datetime: 03/29/2016 10:00 Monitor Mode: External (Luly Halsmer, RN) Frequency (min): 3-4 (Luly Halcristinaer, RN) Quality: Mild (Luly Halsmer, RN) Duration (sec): 50-70 (Luly Halsmer, RN) Resting Tone (Palpate): Relaxed (Luly Parikher, RN) Monitor Mode: External US (Luly Parikher, RN) FHR Baseline Rate : 140 (Luly Halsmer, RN) FHR Baseline Changes: No Baseline Change (Luly Halsmer, RN) Variability: Moderate 6-25 bpm (Luly Halsmer, RN) Decelerations: None (Luly Halsmer, RN) Pitocin (milliunit): Pitocin Remains (milliunits) @ (Annotations: 10) (Luly Halsmer, RN) Datetime: 03/29/2016 09:50 NBP Sys/Maren/Mean (mmHg): 108 (QS system process) : 64 (QS system process) : 80 (QS system process) Pulse: 78 (QS system process) Respirations: 16 (Luly Katier, RN) LaborFlag: Antepartum (QS system process) Datetime: 03/29/2016 09:45 Monitor Mode: External (Luly Halsmer, RN) Frequency (min): 2-4 (Luly Halsmer, RN) Quality: Mild (Luly Halsmer, RN) Duration (sec): 50-70 (Luly Halsmer, RN) Resting Tone (Palpate): Relaxed (Luly Halsmer, RN) Monitor Mode: External US (Luly Halsmer, RN) FHR Baseline Rate : 140 (Luly Halsmer, RN) FHR Baseline Changes: No Baseline Change (Luly Halsmer, RN) Variability: Moderate 6-25 bpm (Luly Halsmer, RN) Accelerations: 15X15 (Luly Halsmer, RN) Decelerations: None (Luly Halsmer, RN) Pitocin (milliunit): Pitocin Increased to (milliunits) @ (Annotations: 10) (Luly Halsmer, RN) Datetime: 03/29/2016 09:30 Monitor Mode: External (Luly Halsmer, RN) Frequency (min): 3-5 (Luly Halsmer, RN) Quality: Mild (Luly Halsmer, RN) Duration (sec): 50-70 (Luly Halsmer, RN) Resting Tone (Palpate): Relaxed (Luly Halsmer, RN) Monitor Mode: External US (Luly Halsmer, RN) FHR Baseline Rate : 140 (Luly Halsmer, RN) FHR Baseline Changes: No Baseline Change (Luly Halsmer, RN) Variability: Moderate 6-25 bpm (Luly Halsmer, RN) Accelerations: 15X15 (Luly Halsmer, RN) Decelerations: None (Luly Halsmer, RN) Pitocin (milliunit): Pitocin Increased to (milliunits) @ (Annotations: 8) (Luly Halsmer, RN) Datetime: 03/29/2016 09:23 NBP Sys/Maren/Mean (mmHg): 109 (QS system process) : 63 (QS system process) : 82 (QS system process) Pulse: 81 (QS system process) Respirations: 16 (Luly Gonzalez RN) LaborFlag: Antepartum (QS system process) Datetime: 03/29/2016 09:15 Monitor Mode: External; Palpation (Luly Gonzalez RN) Frequency (min): 2-4 (Luly Gonzalez RN) Quality: Mild (Luly Gonzalez RN) Duration (sec): 40-60 (Luly Gonzalez RN) Resting Tone (Palpate): Relaxed (Luly Gonzalez RN) Monitor Mode: External US (Luly Gonzalez RN) FHR Baseline Rate : 140 (Luly Gonzalez RN) Variability: Moderate 6-25 bpm (Luly Gonzalez RN) Decelerations: None (Luly Gonzalez RN) Pitocin (milliunit): Pitocin Increased to (milliunits) @ (Annotations: 6) (Luly Gonzalez RN) Datetime: 03/29/2016 09:06 Communication Comments: BREAKFAST PROVIDED (Luly Halsmer, RN) Datetime: 03/29/2016 09:01 Patient Position/Activity: Right Lateral (Luly Halsmer, RN) Datetime: 03/29/2016 09:00 Monitor Mode: External (Luly Halsmer, RN) Frequency (min): 2-5 (Luly Halsmer, RN) Quality: Mild (Luly Halsmer, RN) Duration (sec): 40-80 (Luly Halsmer, RN) Resting Tone (Palpate): Relaxed (Luly Parikher, RN) Monitor Mode: External US (Luly Gonzalez, RN) FHR Baseline Rate : 140 (Luly Parikher, RN) FHR Baseline Changes: No Baseline Change (Luly Halsmer, RN) Variability: Moderate 6-25 bpm (Luly Halsmer, RN) Accelerations: 15X15 (Luly Halsmer, RN) Decelerations: None (Luly Parikher, RN) Pitocin (milliunit): Pitocin Increased to (milliunits) @ 4 (Luly Halcristinaer, RN) Datetime: 03/29/2016 08:58 Actions for Decelerations: Provider Reviewed Strip (Luly Gonzalez RN) I/O Interventions: Up to BR (Luly Parikher, RN) Datetime: 03/29/2016 08:45 Monitor Mode: External (Luly Parikher, RN) Frequency (min): 2-5 (Luly Parikher, RN) Quality: Mild (Luly Parikher, RN) Duration (sec): 40-80 (Lulybe Parikher, RN) Resting Tone (Palpate): Relaxed (Luly Gonzalez, RN) Monitor Mode: External US (Luly Gonzalez, RN) FHR Baseline Rate : 140 (Luly Parikher, RN) FHR Baseline Changes: No Baseline Change (Luly Parikher, RN) Variability: Moderate 6-25 bpm (Luly Katier, RN) Accelerations: 15X15 (Luly Parikher, RN) Decelerations: None (Luly Gonzalez, RN) Pitocin (milliunit): Pitocin Remains (milliunits) @ (Annotations: 2) (Luly Gonzalez, RN) Datetime: 03/29/2016 08:30 Monitor Mode: External (Luly Gonzalez, RN) Frequency (min): 2-5 (Luly Gonzalez, RN) Quality: Mild (Lulybe Parikher, RN) Duration (sec): 40-80 (Luly Parikher, RN) Resting Tone (Palpate): Relaxed (Luly Gonzalez, RN) Monitor Mode: External US (Luly Gonzalez, RN) FHR Baseline Rate : 140 (Luly Parikher, RN) FHR Baseline Changes: No Baseline Change (Luly Parikher, RN) Variability: Minimal - Undetectable to <=5 bpm (Luly Parikher, RN) Decelerations: None (Luly Parikher, RN) Pitocin (milliunit): Pitocin Started (milliunits) @ 2; Pitocin 20 Units in 1000ml NS (Luly Gonzalez RN) Pitocin (milliunit): Pitocin Started (milliunits) @ (Annotations: 2) (Luly Gonzalez RN) Datetime: 03/29/2016 08:00 Monitor Mode: External (Luly Gonzalez RN) Frequency (min): 3-5 (Luly Gonzalez RN) Quality: Mild (Luly Gonzalez RN) Duration (sec): 50-80 (Luly Gonzalez RN) Resting Tone (Palpate): Relaxed (Luly Gonzalez RN) Monitor Mode: External US (Luly Gonzalez RN) FHR Baseline Rate : 150 (Luly Gonzalez RN) FHR Baseline Changes: No Baseline Change (Luly Gonzalez RN) Variability: Moderate 6-25 bpm (Luly Gonzalez RN) Decelerations: None (Luly Gonzalez RN)
[2016-03-29] MEDS ORDERED: FENTANYL/BUPIVACAINE/NS/PF 200 MCG/100 ML RTUINJ EPI ONE (13:14)
[2016-03-29] MEDS ORDERED: EPHEDRINE SULFATE INJ 50 MG/1 ML AMPULE ONE ×2 (13:14→20:42)
[2016-03-29] MEDS ORDERED: BUPIVACAINE HCL 0.25 % INJ/PF (2.5 MG/1 ML) 30 ML VIAL ONE (13:14)
--- NOTE | 2016-03-29 16:01 | L&D Flow Sheet ---
LD Flowsheet Datetime Report Generated by CPN: 03/29/2016 16:00 Datetime: 03/29/2016 15:57 Monitor Interventions for UA: Corley Adjusted (Luly Halsmer, RN) Datetime: 03/29/2016 15:54 Patient Position/Activity: Peanut Ball; Right Extreme (Luly Halsmer, RN) Datetime: 03/29/2016 15:46 NBP Sys/Maren/Mean (mmHg): 111 (QS system process) : 67 (QS system process) : 84 (QS system process) Pulse: 57 (QS system process) Respirations: 16 (Luly Víctorjonatan, RN) LaborFlag: Antepartum (QS system process) Datetime: 03/29/2016 15:45 Pitocin (milliunit): Pitocin Remains (milliunits) @ (Annotations: 20) (Luly Reneesmer, RN) Datetime: 03/29/2016 15:30 Pitocin (milliunit): Pitocin Remains (milliunits) @ (Annotations: 20) (Luly Halsmer, RN) Datetime: 03/29/2016 15:16 NBP Sys/Maren/Mean (mmHg): 108 (QS system process) : 62 (QS system process) : 80 (QS system process) Pulse: 58 (QS system process) Respirations: 16 (Luly Parikher, RN) Temperature (F): 98.1 (Luly Parikher, RN) Temperature (C): 36.7 (QS system process) Temperature Route: Oral (Luly Parikher, RN) LaborFlag: Antepartum (QS system process) Datetime: 03/29/2016 15:15 Monitor Mode: External (Luly Parikher, RN) Frequency (min): 2-4 (Luly Parikher, RN) Quality: Moderate (Luly Halsmer, RN) Duration (sec): 40-60 (Luly Halcristinaer, RN) Resting Tone (Palpate): Relaxed (Luly Farr, RN) Monitor Mode: External US (Luly Farr RN) FHR Baseline Rate : 140 (Luly Halsmer, RN) FHR Baseline Changes: No Baseline Change (Luly Halsmer, RN) Variability: Moderate 6-25 bpm (Luly Halsmer, RN) Accelerations: 15X15 (Luly Halsmer, RN) Decelerations: Variable (Luly Halsmer, RN) Pitocin (milliunit): Pitocin Remains (milliunits) @ (Annotations: 20) (Luly Halcristinaer, RN) Datetime: 03/29/2016 15:09 Patient Position/Activity: Left Extreme; Peanut Ball (Luly Halcristinaer, RN) Datetime: 03/29/2016 15:00 Monitor Mode: External (Luly Parikher, RN) Frequency (min): 2-4 (Luly Parikher, RN) Quality: Moderate (Luly Halsmer, RN) Duration (sec): 40-60 (Luly Halsmer, RN) Resting Tone (Palpate): Relaxed (Luly Parikher, RN) Monitor Mode: External US (Luly Parikher, RN) FHR Baseline Rate : 140 (Luly Katier, RN) FHR Baseline Changes: No Baseline Change (Luly Parikher, RN) Variability: Moderate 6-25 bpm (Luly Halcristinaer, RN) Accelerations: 15X15 (Luly Parikher, RN) Decelerations: Variable (Luly Parikher, RN) Pitocin (milliunit): Pitocin Remains (milliunits) @ (Annotations: 20) (Luly Farr, RN) Datetime: 03/29/2016 14:47 NBP Sys/Maren/Mean (mmHg): 107 (QS system process) : 52 (QS system process) : 75 (QS system process) Pulse: 61 (QS system process) Respirations: 16 (Luly Farr RN) Pain Scale: 1 (Luly Farr RN) Pain Presence: Intermittent (Luly Farr RN) Pain Type: Dull (Luly Farr RN) Pain Location: Abdomen; Back (Luly Farr RN) Pain Goal: 3 (Luly Farr RN) Pain Relief Measures: Comfort Measures (Luly Farr RN) Pain Coping: Talking Through Contractions (Luly Farr RN) LaborFlag: Antepartum (QS system process) Datetime: 03/29/2016 14:45 Monitor Mode: External (Luly Halsmer, RN) Frequency (min): 2-4 (Luly Halsmer, RN) Quality: Moderate (Luly Halsmer, RN) Duration (sec): 40-60 (Luly Halsmer, RN) Resting Tone (Palpate): Relaxed (Luly Halsmer, RN) Monitor Mode: External US (Luly Halsmer, RN) FHR Baseline Rate : 145 (Luly Halsmer, RN) Variability: Moderate 6-25 bpm (Luly Halsmer, RN) Decelerations: Variable (Luly Halsmer, RN) Pitocin (milliunit): Pitocin Remains (milliunits) @ (Annotations: 20) (Luly Halsmer, RN) Datetime: 03/29/2016 14:30 Monitor Mode: External (Luly Halsmer, RN) Frequency (min): 2-3 (Luly Halsmer, RN) Quality: Moderate (Luly Halsmer, RN) Duration (sec): 60-80 (Luly Halsmer, RN) Resting Tone (Palpate): Relaxed (Luly Halsmer, RN) Monitor Mode: External US (Luly Halsmer, RN) FHR Baseline Rate : 140 (Luly Halsmer, RN) Variability: Moderate 6-25 bpm (Luly Halsmer, RN) Decelerations: Variable (Luly Halsmer, RN) Pitocin (milliunit): Pitocin Increased to (milliunits) @ (Annotations: 20) (Luly Farr, RN) Datetime: 03/29/2016 14:15 Monitor Mode: External (Luly Farr RN) Monitor Interventions for UA: Corley Adjusted (Luly Farr, RN) Frequency (min): 2-4 (Luly Farr, RN) Quality: Moderate (Luly Farr RN) Duration (sec): 40-60 (Luly Farr, RN) Resting Tone (Palpate): Relaxed (Luly Farr, RN) Monitor Mode: External US (Luly Farr, RN) FHR Baseline Rate : 150 (Luly Farr, RN) Variability: Moderate 6-25 bpm (Luly Farr, RN) Decelerations: None (Luly Farr, RN) Pitocin (milliunit): Pitocin Increased to (milliunits) @ (Annotations: 18) (Luly Farr, RN) Patient Position/Activity: Left Tilt (Luly Parikher, RN) Datetime: 03/29/2016 14:12 NBP Sys/Maren/Mean (mmHg): 115 (QS system process) : 58 (QS system process) : 80 (QS system process) Pulse: 66 (QS system process) Respirations: 18 (Luly Farr RN) LaborFlag: Antepartum (QS system process) Datetime: 03/29/2016 14:10 Dilatation (cm): 3.0 (Luly Farr RN) Effacement (%): 70 (Luly Farr, THOMAS) Station: -2 (Luly Farr RN) Exam by: Denisha FARR RN (Luly Farr, THOMAS) Cervix, Position: Midposition (Luly Farr RN) Datetime: 03/29/2016 14:09 I/O Interventions: Vasquez Cath Inserted (Lluy Farr, RN) Datetime: 03/29/2016 14:08 Patient Position/Activity: Right Tilt (Luly Halsmer, RN) Datetime: 03/29/2016 14:07 NBP Sys/Maren/Mean (mmHg): 127 (QS system process) : 74 (QS system process) : 92 (QS system process) Pulse: 79 (QS system process) Respirations: 18 (Luly Halsmer, RN) Temperature (F): 100.0 (Luly Halsmer, RN) Temperature (C): 37.8 (QS system process) Temperature Route: Axillary (Luly Parikher, RN) LaborFlag: Antepartum (QS system process) Datetime: 03/29/2016 14:04 NBP Sys/Maren/Mean (mmHg): 122 (QS system process) : 62 (QS system process) : 87 (QS system process) Pulse: 77 (QS system process) Respirations: 20 (Luly Farr RN) LaborFlag: Antepartum (QS system process) Datetime: 03/29/2016 14:03 NBP Sys/Maren/Mean (mmHg): 115 (QS system process) : 55 (QS system process) : 78 (QS system process) Pulse: 98 (QS system process) Respirations: 20 (Luly Farr, THOMAS) LaborFlag: Antepartum (QS system process) Datetime: 03/29/2016 14:02 NBP Sys/Maren/Mean (mmHg): 115 (QS system process) : 64 (QS system process) : 83 (QS system process) Pulse: 86 (QS system process) Pulse: 88 (QS system process) Respirations: 20 (Luly Parikher, RN) SpO2 (%): 99 (QS system process) LaborFlag: Antepartum (QS system process) Datetime: 03/29/2016 14:01 NBP Sys/Maren/Mean (mmHg): 131 (QS system process) : 63 (QS system process) : 90 (QS system process) Pulse: 84 (QS system process) Respirations: 20 (Luly Farr RN) LaborFlag: Antepartum (QS system process) Datetime: 03/29/2016 14:00 Monitor Mode: External (Luly Farr RN) Frequency (min): 2-4 (Luly Farr RN) Quality: Moderate (Luly Farr RN) Duration (sec): 40-60 (Luly Farr RN) Resting Tone (Palpate): Relaxed (Luly Farr RN) Monitor Mode: External US (Luly Farr RN) FHR Baseline Rate : 140 (Luly Farr RN) FHR Baseline Changes: No Baseline Change (Luly Farr RN) Variability: Moderate 6-25 bpm (Luly Farr RN) Decelerations: None (Luly Farr RN) Pitocin (milliunit): Pitocin Remains (milliunits) @ (Annotations: 16) (Luly Parikher, RN) Datetime: 03/29/2016 13:59 Epidural Procedure: Test Dose (Luly Katier, RN) Datetime: 03/29/2016 13:57 Pulse: 102 (QS system process) SpO2 (%): 99 (QS system process) Epidural Procedure: Cath Placed (Luly Halsmer, RN) LaborFlag: Antepartum (QS system process) Datetime: 03/29/2016 13:52 Pulse: 74 (QS system process) SpO2 (%): 96 (QS system process) LaborFlag: Antepartum (QS system process) Datetime: 03/29/2016 13:51 NBP Sys/Maren/Mean (mmHg): 148 (QS system process) : 76 (QS system process) : 104 (QS system process) Pulse: 82 (QS system process) Respirations: 20 (Luly Farr RN) Procedure Verify: Correct Patient Identity; Correct Side and Site are Marked; Accurate Procedure Consent Form; Agreement on Procedure to be Done; Correct Patient Position (Luly Farr RN) Anesthesia Plans: Epidural (Luly Farr RN) Epidural Positioning: Sitting (Luly Farr RN) LaborFlag: Antepartum (QS system process) Datetime: 03/29/2016 13:49 Anesthesia Comments: DR MEYER IN ROOM (Luly Farr RN) Datetime: 03/29/2016 13:47 Pulse: 86 (QS system process) Pulse: 108 (QS system process) Respirations: 20 (Luly Farr, RN) SpO2 (%): 97 (QS system process) SpO2 (%): 93 (QS system process) LaborFlag: Antepartum (QS system process) Datetime: 03/29/2016 13:45 Monitor Mode: External (Luly Parikher, RN) Frequency (min): 2-4 (Luly Farr, RN) Quality: Moderate (Luly Parikher, RN) Duration (sec): 40-60 (Luly Parikher, RN) Resting Tone (Palpate): Relaxed (Luly Parikher, RN) Monitor Mode: External US (Luly Farr, RN) FHR Baseline Rate : 140 (Luly Parikher, RN) Variability: Moderate 6-25 bpm (Luly Halcristinaer, RN) Accelerations: 15X15 (Lulybe Parikher, RN) Decelerations: Variable (Luly Parikher, RN) Pitocin (milliunit): Pitocin Remains (milliunits) @ (Annotations: 16) (Luly Farr, RN) Datetime: 03/29/2016 13:40 Communication Comments: PT ATTEMPTING TO HAVE MB (Luly Halsmer, RN) Datetime: 03/29/2016 13:36 I/O Interventions: Up to BR (Luly Halsmer, RN) Datetime: 03/29/2016 13:30 Monitor Mode: External (Luly Halsmer, RN) Frequency (min): 2-4 (Luly Halsmer, RN) Quality: Moderate (Luly Halsmer, RN) Duration (sec): 50-70 (Luly Halsmer, RN) Resting Tone (Palpate): Relaxed (Luly Halsmer, RN) Monitor Mode: External US (Luly Halsmer, RN) FHR Baseline Rate : 140 (Luly Halsmer, RN) Variability: Moderate 6-25 bpm (Luly Halsmer, RN) Accelerations: 15X15 (Luly Halsmer, RN) Decelerations: None (Luly Halsmer, RN) Pitocin (milliunit): Pitocin Remains (milliunits) @ (Annotations: 16) (Luly Halsmer, RN) Datetime: 03/29/2016 13:20 NBP Sys/Maren/Mean (mmHg): 115 (QS system process) : 66 (QS system process) : 85 (QS system process) Pulse: 70 (QS system process) LaborFlag: Antepartum (QS system process) Datetime: 03/29/2016 13:15 Monitor Mode: External (Luly Halsmer, RN) Frequency (min): 2-3 (Luly Halsmer, RN) Quality: Moderate (Luly Halsmer, RN) Duration (sec): 50-70 (Luly Halsmer, RN) Resting Tone (Palpate): Relaxed (Luly Halsmer, RN) Monitor Mode: External US (Luly Halsmer, RN) FHR Baseline Rate : 150 (Luly Halsmer, RN) Variability: Moderate 6-25 bpm (Luly Halsmer, RN) Decelerations: Variable (Luly Halsmer, RN) Pitocin (milliunit): Pitocin Remains (milliunits) @ (Annotations: 16) (Luly Halsmer, RN) Datetime: 03/29/2016 13:00 Monitor Mode: External; Palpation (Luly Halsmer, RN) Frequency (min): 2-4 (Luly Halsmer, RN) Quality: Moderate (Luly Halsmer, RN) Duration (sec): 50-70 (Luly Halsmer, RN) Resting Tone (Palpate): Relaxed (Luly Halsmer, RN) Monitor Mode: External US (Luly Halsmer, RN) FHR Baseline Rate : 150 (Luly Halsmer, RN) Variability: Moderate 6-25 bpm (Luly Halsmer, RN) Decelerations: None (Luly Halsmer, RN) Pitocin (milliunit): Pitocin Remains (milliunits) @ (Annotations: 16) (Luly Halsmer, RN) Datetime: 03/29/2016 12:50 Communication Comments: IV FLUSHED WITH NORMAL SALINE PT TOLERATED WELL, NO REDNESS NOTED. (Luly Farr RN) Datetime: 03/29/2016 12:49 NBP Sys/Maren/Mean (mmHg): 113 (QS system process) : 84 (QS system process) : 94 (QS system process) Pulse: 69 (QS system process) Respirations: 18 (Luly Farr RN) Pain Presence: Intermittent (Luly Farr RN) Pain Type: Contraction (Luly Farr RN) Pain Location: Abdomen (Luly Farr RN) Pain Coping: Requesting Pain Medication or Epidural (Luly Farr RN) Comfort Measures: Breathing/Relaxation; Coaching; Family Support (Luly Farr RN) LaborFlag: Antepartum (QS system process) Datetime: 03/29/2016 12:45 Monitor Mode: External (Luly Halsmer, RN) Frequency (min): 2-4 (Luly Halsmer, RN) Quality: Moderate (Luly Halsmer, RN) Duration (sec): 50-70 (Luly Halsmer, RN) Resting Tone (Palpate): Relaxed (Luly Halsmer, RN) Monitor Mode: External US (Luly Halsmer, RN) FHR Baseline Rate : 140 (Luly Halsmer, RN) Variability: Moderate 6-25 bpm (Luly Halsmer, RN) Decelerations: Variable (Luly Halsmer, RN) Pitocin (milliunit): Pitocin Remains (milliunits) @ (Annotations: 16) (Luly Halsmer, RN) Datetime: 03/29/2016 12:41 Actions for Decelerations: Side to Side (Oanh Marlatt, RN) Patient Position/Activity: Left Extreme (Luly Halsmer, RN) Patient Position/Activity: Right Lateral; Low Fowlers (Oanh Marlatt, RN) Datetime: 03/29/2016 12:30 Monitor Mode: External (Luly Halsmer, RN) Frequency (min): 2-3 (Luly Halsmer, RN) Quality: Moderate (Luly Halsmer, RN) Duration (sec): 50-70 (Luly Halsmer, RN) Resting Tone (Palpate): Relaxed (Luly Halsmer, RN) Monitor Mode: External US (Luly Halsmer, RN) FHR Baseline Rate : 150 (Luly Halsmer, RN) Variability: Minimal - Undetectable to <=5 bpm (Luly Halsmer, RN) Accelerations: 15X15 (Luly Halsmer, RN) Decelerations: Early (Luly Halsmer, RN) Pitocin (milliunit): Pitocin Remains (milliunits) @ (Annotations: 16) (Luly Halsmer, RN) Datetime: 03/29/2016 12:15 Monitor Mode: External (Luly Halsmer, RN) Frequency (min): 2-3 (Luly Halsmer, RN) Quality: Moderate (Luly Halsmer, RN) Duration (sec): 50-70 (Luly Halsmer, RN) Resting Tone (Palpate): Relaxed (Luly Halsmer, RN) Monitor Mode: External US (Luly Halsmer, RN) FHR Baseline Rate : 140 (Luly Halsmer, RN) Variability: Moderate 6-25 bpm (Luly Halsmer, RN) Accelerations: 15X15 (Luly Halsmer, RN) Decelerations: None (Luly Halsmer, RN) Pitocin (milliunit): Pitocin Remains (milliunits) @ (Annotations: 16) (Luly Farr RN) Datetime: 03/29/2016 12:00 Monitor Mode: External (Luly Farr RN) Frequency (min): 2-4 (Luly Farr RN) Quality: Moderate (Luly Farr RN) Duration (sec): 50-70 (Luly Farr RN) Resting Tone (Palpate): Relaxed (Luly Farr RN) Monitor Mode: External US (Luly Farr RN) FHR Baseline Rate : 140 (Luly Farr RN) FHR Baseline Changes: No Baseline Change (Luly Farr RN) Variability: Moderate 6-25 bpm (Luly Farr RN) Accelerations: 15X15 (Luly Farr RN) Decelerations: Early (Luly Farr RN) Pitocin (milliunit): Pitocin Remains (milliunits) @ (Annotations: 16) (Luly Farr RN)
--- NOTE | 2016-03-29 20:00 | L&D Flow Sheet ---
LD Flowsheet Datetime Report Generated by CPN: 03/29/2016 20:00 Datetime: 03/29/2016 19:46 NBP Sys/Maren/Mean (mmHg): 118 (QS system process) : 78 (QS system process) : 94 (QS system process) Pulse: 94 (QS system process) Respirations: 14 (Lennie Ledgerwood, RN) LaborFlag: Labor (QS system process) Datetime: 03/29/2016 19:45 Monitor Mode: Internal (Lennie Ledgerwood, RN) Frequency (min): 1.5-2.5 (Lennie Ledgerwood, RN) Quality: Moderate (Lennie Ledgerwood, RN) Duration (sec): 70-90 (Lennie Ledgerwood, RN) Duration Criteria: Less than Two 120 Second Contractions (Lennie Ledgerwood, RN) Pattern: Normal: <= 5 Contractions in 10 Minutes (Lennie Ledgerwood, RN) Resting Tone (Palpate): Relaxed (Lennie Ledgerwood, RN) Monitor Mode: External US (Lennie Ledgerwood, RN) FHR Baseline Rate : 150 (Lennie Ledgerwood, RN) FHR Baseline Changes: No Baseline Change (Lennie Ledgerwood, RN) Variability: Moderate 6-25 bpm (Lennie Ledgerwood, RN) Accelerations: 15X15 (Lennie Ledgerwood, RN) Decelerations: None; Variable (Lennie Ledgerwood, RN) Datetime: 03/29/2016 19:30 Monitor Mode: Internal (Lennie Ledgerwood, RN) Frequency (min): 2.5 (Lennie Ledgerwood, RN) Quality: Moderate (Lennie Ledgerwood, RN) Duration (sec): 60-90 (Lennie Ledgerwood, RN) Duration Criteria: Less than Two 120 Second Contractions (Lennie Ledgerwood, RN) Pattern: Normal: <= 5 Contractions in 10 Minutes (Lennie Ledgerwood, RN) Resting Tone (Palpate): Relaxed (Lennie Ledgerwood, RN) Resting Tone IUP (mmHg): 35 (Lennie Ledgerwood, RN) Intensity IUP (mmHg): 75 (Lennie Ledgerwood, RN) Contraction Comments: MVUs 130 (Lennie Ledgerwood, RN) Monitor Mode: External US (Lennie Humphreys, THOMAS) FHR Baseline Rate : 145 (Lennie Humphreys, RN) FHR Baseline Changes: No Baseline Change (Lennie Humphreys, RN) Variability: Moderate 6-25 bpm (Lennie Wallacegernel, RN) Accelerations: 15X15 (Lennie Wallacegernel, RN) Decelerations: None; Variable (Lennie Humphreys, RN) Datetime: 03/29/2016 19:22 Pain Scale: 2 (Lennie Humphreys RN) Pain Presence: Intermittent (Lennie Humphreys, THOMAS) Pain Type: Contraction (Lennie Humphreys, RN) Pain Location: Abdomen (Lennie Humphreys, RN) Pain Relief Measures: pt has Epidural (Lennie Humphreys, THOMAS) Level of Consciousness: Fully Conscious (Lennie Humphreys, THOMAS) DTR's/Clonus: DTRs 2+; No Clonus (Lennie Humphreys, THOMAS) Headache: Denies (Lennie Humphreys, THOMAS) Breath Sounds, Left: Clear and Equal (Lennie Humphreys, THOMAS) Breath Sounds, Right: Clear and Equal (Lennie Humphreys, RN) Nausea/Vomiting: Denies (Lennie Humphreys, RN) RUQ Epigastric Pain: Denies (Lennie Humphreys, THOMAS) Instructional Method: Demo; Verbal; Patient Instructed (Lennie Humphreys RN) Plan of Care: Plan of Care Discussed (Lennie Humphreys RN) LaborFlag: Labor (QS system process) Datetime: 03/29/2016 19:18 Communication Comments: Report received from [facility] RN at bedside (Lennie Ledgerwood, RN) Datetime: 03/29/2016 19:17 NBP Sys/Maren/Mean (mmHg): 117 (QS system process) : 74 (QS system process) : 90 (QS system process) Pulse: 86 (QS system process) LaborFlag: Labor (QS system process) Datetime: 03/29/2016 19:15 Monitor Mode: Internal (Lennie Ledgerwood, RN) Frequency (min): 2.5-3 (Lennie Ledgerwood, RN) Quality: Moderate (Lennie Ledgerwood, RN) Duration (sec): 60-80 (Lennie Ledgerwood, RN) Duration Criteria: Less than Two 120 Second Contractions (Lennie Rodrigogerwood, RN) Pattern: Normal: <= 5 Contractions in 10 Minutes (Lennie Rodrigogerwood, RN) Resting Tone (Palpate): Relaxed (Lennie Rodrigogerwood, RN) Monitor Mode: External US (Lennie Humphreys, RN) FHR Baseline Rate : 150 (Lennie Rodrigogerwood, RN) FHR Baseline Changes: No Baseline Change (Lennie Rodrigogerwood, RN) Variability: Moderate 6-25 bpm (Lennie Rodrigogerwood, RN) Accelerations: 15X15 (Lennie Rodrigogerwood, RN) Decelerations: None; Variable (Lennie Rodrigogerwood, RN) Pitocin (milliunit): Pitocin Remains (milliunits) @ 20 (Lennie Wallacegerwood, RN) Datetime: 03/29/2016 19:00 Monitor Mode: Internal (Luly Farr, RN) Frequency (min): 2-3 (Luly Farr, RN) Quality: Moderate (Luly Parikher, RN) Duration (sec): 60-100 (Luly Parikher, RN) Resting Tone (Palpate): Relaxed (Luly Farr, RN) Resting Tone IUP (mmHg): 25 (Luly Farr, RN) Monitor Mode: External US (Luly Farr, RN) FHR Baseline Rate : 150 (Luly Reneesmer, RN) Variability: Moderate 6-25 bpm (Luly Parikher, RN) Accelerations: 15X15 (Luly Halsmer, RN) Decelerations: Variable (Luly Halsmer, RN) Datetime: 03/29/2016 18:47 NBP Sys/Maren/Mean (mmHg): 137 (QS system process) : 85 (QS system process) : 106 (QS system process) Pulse: 80 (QS system process) LaborFlag: Labor (QS system process) Datetime: 03/29/2016 18:45 Monitor Mode: Internal (Luly Parikher, RN) Monitor Mode: External US (Luly Parikher, RN) FHR Baseline Rate : 155 (Luly Parikher, RN) Variability: Moderate 6-25 bpm (Luly Halsmer, RN) Accelerations: 15X15 (Luly Halsmer, RN) Decelerations: Variable (Luly Parikher, RN) Pitocin (milliunit): Pitocin Remains (milliunits) @ (Annotations: 20) (Luly Halsmer, RN) Datetime: 03/29/2016 18:35 Patient Position/Activity: Tailors (Luly Halsmer, RN) Datetime: 03/29/2016 18:34 Contraction Comments: ATTEMPT TO ZERO IUPC WITHOUT GOING BELOW ZERO (Luly Halsmer, RN) Datetime: 03/29/2016 18:32 Dilatation (cm): 4.0 (Luly Halsmer, RN) Effacement (%): 90 (Luly Halsmer, RN) Station: 0 (Luly Halsmer, RN) Exam by: Denisha FARR RN (Luly Halsmer, RN) Datetime: 03/29/2016 18:30 Monitor Mode: External US (Luly Halsmer, RN) FHR Baseline Rate : 140 (Luly Halsmer, RN) Variability: Moderate 6-25 bpm (Luly Halsmer, RN) Accelerations: 15X15 (Luly Halsmer, RN) Decelerations: Late; Variable (Luly Halsmer, RN) Pitocin (milliunit): Pitocin Remains (milliunits) @ (Annotations: 20) (Luly Halsmer, RN) Datetime: 03/29/2016 18:16 NBP Sys/Maren/Mean (mmHg): 92 (QS system process) : 51 (QS system process) : 66 (QS system process) Pulse: 71 (QS system process) Respirations: 16 (Luly Halsmer, RN) LaborFlag: Labor (QS system process) Datetime: 03/29/2016 18:15 Monitor Mode: Internal (Luly Halsmer, RN) Frequency (min): 2-4 (Luly Halsmer, RN) Duration (sec): 40-60 (Luly Halsmer, RN) Duration (sec): 60-100 (Luly Halsmer, RN) Resting Tone IUP (mmHg): 25 (Luly Halsmer, RN) Contraction Comments: TOTAL MVU'S 190 (Luly Halsmer, RN) Monitor Mode: External US (Luly Halsmer, RN) FHR Baseline Rate : 140 (Luly Halsmer, RN) Variability: Moderate 6-25 bpm (Luly Halsmer, RN) Accelerations: 15X15 (Luly Halsmer, RN) Decelerations: Variable (Luly Halsmer, RN) Pitocin (milliunit): Pitocin Remains (milliunits) @ (Annotations: 20) (Luly Halsmer, RN) Datetime: 03/29/2016 18:07 Patient Position/Activity: Peanut Ball; Right Extreme (Luly Halsmer, RN) Datetime: 03/29/2016 18:00 Monitor Mode: Internal (Luly Halsmer, RN) Monitor Mode: External US (Luly Halsmer, RN) FHR Baseline Rate : 150 (Luly Halsmer, RN) Variability: Moderate 6-25 bpm (Luly Halsmer, RN) Accelerations: 15X15 (Luly Halsmer, RN) Decelerations: Variable (Luly Halsmer, RN) Pitocin (milliunit): Pitocin Remains (milliunits) @ (Annotations: 20) (Luly Halsmer, RN) Datetime: 03/29/2016 17:47 Resting Tone IUP (mmHg): 0 (Luly Halsmer, RN) Intensity IUP (mmHg): 36 (Luly Halsmer, RN) Contraction Comments: MVU'S 180 (Luly Halsmer, RN) Datetime: 03/29/2016 17:46 Stage of : Labor (Luly Halsmer, RN) NBP Sys/Maren/Mean (mmHg): 122 (QS system process) : 66 (QS system process) : 89 (QS system process) Pulse: 64 (QS system process) Respirations: 16 (Luly Halsmer, RN) LaborFlag: Labor (QS system process) Datetime: 03/29/2016 17:45 Monitor Mode: External US (Luly Halsmer, RN) FHR Baseline Rate : 140 (Luly Halsmer, RN) Variability: Moderate 6-25 bpm (Luly Halsmer, RN) Accelerations: 15X15 (Luly Halsmer, RN) Decelerations: Variable (Luly Halsmer, RN) Pitocin (milliunit): Pitocin Remains (milliunits) @ (Annotations: 20) (Luly Halsmer, RN) Datetime: 03/29/2016 17:30 Monitor Mode: Internal (Luly Parikher, RN) Monitor Mode: External US (Luly Farr, RN) FHR Baseline Rate : 145 (Luly Halcristinaer, RN) Variability: Moderate 6-25 bpm (Luly Halsmer, RN) Accelerations: 15X15 (Luly Halsmer, RN) Decelerations: Late; Variable (Luly Halcristinaer, RN) Pitocin (milliunit): Pitocin Remains (milliunits) @ (Annotations: 20) (Luly Halcristinaer, RN) Datetime: 03/29/2016 17:24 Monitor Interventions for FHR: Ultrasound Adjusted (Luly Farr RN) Patient Position/Activity: Left Extreme; Peanut Ball (Luly Farr, RN) Communication: RN at Bedside (Luly Farr, RN) Datetime: 03/29/2016 17:16 NBP Sys/Maren/Mean (mmHg): 126 (QS system process) : 61 (QS system process) : 88 (QS system process) Pulse: 79 (QS system process) Respirations: 16 (Luly Halcristinaer, RN) Temperature (F): 98.3 (Luly Halsmer, RN) Temperature (C): 36.8 (QS system process) Temperature Route: Oral (Luly Parikher, RN) Pain Scale: 2 (Luly Parikher, RN) Pain Presence: Intermittent (Luly Parikher, RN) Pain Type: Dull (Luly Parikher, RN) Pain Location: Abdomen (Luly Parikher, RN) Pain Goal: 0 (Luly Parikher, RN) Pain Relief Measures: Comfort Measures (Luly Parikher, RN) LaborFlag: Antepartum (QS system process) Datetime: 03/29/2016 17:15 Monitor Mode: External US (Luly Parikher, RN) FHR Baseline Rate : 140 (Luly Parikher, RN) FHR Baseline Changes: No Baseline Change (Luly Halsmer, RN) Variability: Moderate 6-25 bpm (Luly Halsmer, RN) Decelerations: Variable (Luly Halsmer, RN) Pitocin (milliunit): Pitocin Remains (milliunits) @ (Annotations: 20) (Luly Halsmer, RN) Datetime: 03/29/2016 17:00 Monitor Mode: Internal (Luly Halsmer, RN) Quality: Moderate to Strong (Luly Halsmer, RN) Resting Tone (Palpate): Relaxed (Luly Halsmer, RN) Resting Tone IUP (mmHg): 20 (Luly Halsmer, RN) Intensity IUP (mmHg): 55 (Luly Halsmer, RN) Contraction Comments: TOTAL MVU 220 MMHG (Luly Halsmer, RN) Monitor Mode: External US (Luly Halsmer, RN) FHR Baseline Rate : 145 (Luly Halsmer, RN) FHR Baseline Changes: No Baseline Change (Luly Halsmer, RN) Variability: Moderate 6-25 bpm (Luly Halsmer, RN) Decelerations: Variable (Luly Halsmer, RN) Pitocin (milliunit): Pitocin Remains (milliunits) @ (Annotations: 20) (Luly Halsmer, RN) Datetime: 03/29/2016 16:45 Monitor Mode: External US (Luly Halsmer, RN) FHR Baseline Rate : 140 (Luly Halsmer, RN) Variability: Moderate 6-25 bpm (Luly Halsmer, RN) Decelerations: None (Luly Halsmer, RN) Pitocin (milliunit): Pitocin Remains (milliunits) @ (Annotations: 20) (Luly Halsmer, RN) Datetime: 03/29/2016 16:31 NBP Sys/Maren/Mean (mmHg): 124 (QS system process) : 63 (QS system process) : 84 (QS system process) Pulse: 86 (QS system process) Respirations: 16 (Luly Farr, RN) LaborFlag: Antepartum (QS system process) Datetime: 03/29/2016 16:30 Monitor Mode: External US (Luly Parikher, RN) FHR Baseline Rate : 140 (Luly Reneesmer, RN) Variability: Moderate 6-25 bpm (Luly Halsmer, RN) Accelerations: 15X15 (Luly Halsmer, RN) Decelerations: Early; Variable (Luly Halsmer, RN) Pitocin (milliunit): Pitocin Remains (milliunits) @ (Annotations: 20) (Luly Halcristinaer, RN) Datetime: 03/29/2016 16:20 Patient Position/Activity: Tailors (Luly Parikher, RN) Datetime: 03/29/2016 16:18 Monitor Interventions for UA: IUPC Inserted (Luly Farr, THOMAS) Dilatation (cm): 4.0 (Luly Farr, RN) Effacement (%): 80 (Luly Farr, RN) Station: -2 (Luly Farr, THOMAS) Exam by: DR KUMAR (Luly Farr, THOMAS) Datetime: 03/29/2016 16:15 Monitor Mode: External (Luly Parikher, RN) Frequency (min): 2-4 (Luly Farr, RN) Quality: Moderate (Luly Parikher, RN) Duration (sec): 40-60 (Luly Farr RN) Resting Tone (Palpate): Relaxed (Luly Farr RN) Monitor Mode: External US (Luly Farr RN) FHR Baseline Rate : 140 (Luly Farr RN) Variability: Moderate 6-25 bpm (Luly Farr RN) Decelerations: Variable (Luly Farr RN) Pitocin (milliunit): Pitocin Remains (milliunits) @ (Annotations: 20) (Luly Farr RN) Datetime: 03/29/2016 16:00 Monitor Mode: External (Luly Farr RN) Frequency (min): 2-4 (Luly Farr RN) Quality: Moderate (Luly Farr RN) Duration (sec): 50-70 (Luly Farr RN) Resting Tone (Palpate): Relaxed (Luly Farr RN) Monitor Mode: External US (Luly Farr RN) FHR Baseline Rate : 140 (Luly Farr RN) Variability: Moderate 6-25 bpm (Luly Farr RN) Accelerations: 15X15 (Luly Farr RN) Decelerations: Early; Variable (Luly Farr RN) Pitocin (milliunit): Pitocin Remains (milliunits) @ (Annotations: 20) (Luly Farr RN)
[2016-03-29] MEDS ORDERED: CITRIC ACID/SODIUM CITRATE ORAL SOLN 15 ML UDCUP ONE (20:19)
[2016-03-29] MEDS ORDERED: CEFAZOLIN 2 GM/D5W RTU 2 GM/50 ML RTUPB IV ONE (20:19)
[2016-03-29] MEDS ORDERED: OXYTOCIN/NORMAL SALINE 1,000 ML IV PRN (20:20)
[2016-03-29] MEDS ORDERED: RINGERS SOLUTION,LACTATED 1,000 ML IV PRN (20:20)
[2016-03-29] MEDS ORDERED: HYDROMORPHONE HCL INJ/PF 2 MG/ML AMPULE IV PRN (20:20)
[2016-03-29] MEDS ORDERED: MEASLES,MUMPS&RUBELLA VACC/PF 0.5 ML VIAL SUBCUT PRN (20:20)
[2016-03-29] MEDS ORDERED: ACETAMINOPHEN 325 MG TABLET PO PRN (20:20)
[2016-03-29] MEDS ORDERED: PROMETHAZINE HCL INJ 25 MG/1 ML VIAL IV PRN (20:20)
[2016-03-29] MEDS ORDERED: OXYCODONE-ACETAMINOPHEN 5-325 MG TABLET PO PRN (20:20)
[2016-03-29] MEDS ORDERED: DIPH/PERTUSS(ACELL)/TETANUS VAC/PF 0.5 ML SYR (>=10YO) IM PRN (20:20)
[2016-03-29] MEDS ORDERED: SIMETHICONE 80 MG TAB.CHEW PO PRN (20:20)
[2016-03-29] MEDS ORDERED: OXYTOCIN 10 UNIT/ML VIAL ONE (20:41)
[2016-03-29] MEDS ORDERED: ONDANSETRON HCL INJ/PF 4 MG/2 ML SDV ONE (20:41)
[2016-03-29] MEDS ORDERED: MIDAZOLAM 2 MG/2 ML INJ ONE (20:42)
[2016-03-29] MEDS ORDERED: FENTANYL CITRATE INJ/PF 100 MCG/2 ML AMPUL ONE (20:42)
[2016-03-29] MEDS ORDERED: ACETAMINOPHEN 100 ML IV ONE (20:45)
[2016-03-29] MEDS ORDERED: DIPHENHYDRAMINE HCL 50 MG/ML VIAL ONE (21:46)
--- NOTE | 2016-03-29 21:59 | Operative Report ---
Operative Report DATE OF SURGERY: 03/29/16 PREOPERATIVE DIAGNOSIS: CPD persistent occiput posterior presentation POSTOPERATIVE DIAGNOSIS: Same OPERATION: Primary via low transverse uterine incision SURGEON: LAVELL BASURTO PROFESSIONAL SERVICES SPECIALIST: OR staff ANESTHESIA: Spinal TISSUE REMOVED OR ALTERED: Placenta COMPLICATIONS: None ESTIMATED BLOOD LOSS: 250 mL INTRAOPERATIVE FINDINGS: Viable male Apgars 9 and 9 weight 8 lbs. 9 oz. directly occiput posterior PROCEDURE: Patient was taken to the OR and placed in supine position after her spinal anesthesia. She is prepared and draped in sterile fashion. Vasquez was placed for drainage of the bladder. Low transverse incision was made and carried down the level of the fascia. The fascial incision was made with knife and extended bilaterally with curved Tamayo scissors. The fascia was off the rectus muscles using sharp and blunt dissection. The rectus muscles are in the midline. The peritoneum was entered without incident. Bladder blade was placed in uterine segment was identified. A low transverse incision was made creating a bladder flap. Bladder blade was placed low transverse uterine incision was made with the knife and extended with fingertips. The baby was delivered with the assistance of a Kiwi vacuum with pressure in green and some fundal pressure. The Kiwi was used because the persistent occiput posterior position very difficult to elevate the head up out of the pelvis. I also made a small incision on the rectus abdominis muscle on the right side to open up the pelvis. Mouth and nose were suctioned free. The cord is doubly clamped and cut. Baby is passed off to the performance makeup artist in attendance. The placenta was manually extracted with trailing membranes. The uterus was externalized wrapped in a moist lap sponge. Uterine contents wiped free. Uterus was closed with a running locking layer of 0 chromic suture using the second layer to imbricate the first completing a double layer closure of the uterus. The serosa was closed with a running 2-0 chromic stitch. The pelvis was irrigated and suctioned free of fluid the uterus was replaced in the abdomen. The right- sided rectus about abdominal muscle was brought back together using a 0 chromic suture in a running fashion. The abdominal wall peritoneum was closed with running 2-0 chromic stitch. Fascia was closed with a running 0 Vicryl in 2 segments. Lorena's layer was brought together with 0 plain gut stitch and the skin was closed with running subcuticular 4-0 undyed Vicryl stitch. The wound was dressed mother and baby did well.
[2016-03-29] MEDS ORDERED: KETOROLAC TROMETHAMINE INJ/PF 30 MG/1 ML SDV ONE (23:01)
[2016-03-29] MEDS: KETOROLAC TROMETHAMINE INJ/PF 30 MG/1 ML SDV IV SCH (23:05)
--- NOTE | 2016-03-30 00:03 | Admission Physical ---
Datetime Report Generated by CPN: 03/30/2016 00:03 CURRENT ADMISSION Chief Complaint: Scheduled Induction of Labor Indication for Induction: Post Dates Admit Plan: Admit to Unit; Initiate Labor Induction Protocol ALLERGIES Medication Allergies: No Medication Allergies: No Known Allergies (01/12/2016) Latex: No Latex Allergies Food Allergies: NONE Environmental Allergies: NONE OBSTETRICAL HISTORY EDC: 03/20/2016 00:00 : 1 Para: 0 Term: 0 : 0 SAB: 0 IAB: 0 Ectopic: 0 Livin Cesareans: 0 VBACs: 0 Multiple Births: 0 Gestational Diabetes: No Rh Sensitization: No Incompetent Cervix: No SAURABH: No Infertility: No ART Treatment: No Uterine Anomaly: No IUGR: No Hx Previous C/S: No Macrosomia: No Hx Loss/Stillborn: No PIH: No Hx : No Placenta Previa/Abruption: No Depression/PP Depression: No PTL/PROM: No Post Hemorrhage: No Current Procedures: Ultrasound; NST Obstetrical History Comments: G1 - current - s>d- late entry to care at 15wk SEE RECORDS Alcohol: No Marijuana : No Cocaine: No Other Illicit Drugs: No Cigarettes: Never Smoker. [id number] MEDICAL HISTORY Diabetes: No Blood Transfusion: No Pulmonary Disease (Asthma, TB): No Breast Disease: No Hypertension: No Belt Line Feeder Surgery: No Heart Disease: No Hosp/Surgery: No Autoimmune Disorder: No Anesthetic Complications: No Kidney Disease: No Abnormal Pap Smear: No Neuro/Epilepsy: No Psychiatric Disorders: No Other Medical Diseases: No Hepatitis/Liver Disease: No Significant Family History: No Varicosities/Phlebitis: No Trauma/Violence : No Thyroid Dysfunction: No INFECTIOUS HISTORY Gonorrhea: No Genital Herpes: No Chlamydia: No Tuberculosis: No Syphilis: No Hepatitis: No HIV/AIDS Exposure: No Rash or Viral Illness: No HPV: No PHYSICAL EXAM General: Normal HEENT: Normal Neurologic: Normal Thyroid: Deferred Heart: Normal Lungs: Normal Breast: Deferred Back: Normal Abdomen: Normal Genitourinary Exam: Deferred Extremities: Normal DTRs: Normal Pelvic Type: Not Done Physical Exam Comments: Gravid Vital Signs: Reviewed; Within Normal Limits MEMBRANES Membranes: Intact FETUS A EGA: 41.2 Monitoring: External US FHR- Baseline: 140 Presentation: Vertex Admit Comment: G1 Late entry to care Abnormal 1hrgtt; normal 3hrgtt Obesity IOL for postdates PLANS FOR LABOR AND DELIVERY Labor and Delivery: None Pain Management: Epidural Feeding Preference: Breast Benefit of Breast Feed Discussed: Yes Circumcision: Yes INFORMED CONSENT Assignment: Lukas Man MD Signature: with User ID: Kimberly : with User ID: Kimberly : I personally evaluated and examined the patient in conjunction with the MLP and agree with the assessment, treatment plan and disposition.
--- NOTE | 2016-03-30 00:54 | Delivery Summary ---
Del Sum A-C Datetime Report Generated by CPN: 03/30/2016 00:54 ADMISSION DATA Chief Complaint: Scheduled Induction of Labor Indication for Induction: Post Dates Admission Impression: Term, Intrauterine ; Postterm, Intrauterine Admit Provider Comments: G1 Late entry to care Abnormal 1hrgtt; normal 3hrgtt Obesity IOL for postdates DELIVERY PERSONNEL Delivery Doctor:: Lukas Man MD Anesthesiologist:: Angelito Marks MD AUTO WINDER:: Truong Giraldo CRNA Labor and Delivery Nurse:: Jennifer Mcfarlane RN Application Integration Engineer:: Lennie Humphreys RN Nursery Nurse:: Bhumi Khanna, RN MSN Automotive Porter/STITCH BURNISHER: Mary Beth Mane, ST Automotive Porter/STITCH BURNISHER: Estephania Bowen, ST MATERNAL INFORMATION Delivery Anesthesia: Epidural; Spinal Medications After Delivery: Pitocin Drip 20 Units/1000ml NSS LABOR SUMMARY EDC: 03/20/2016 00:00 No. Babies in Womb: 1 Attempted: No LABOR INFORMATION Reason for Induction: Post Dates Onset of Labor: 03/29/2016 16:18 Cervical Ripening Agents: Cervidil Oxytocin: Induction Group B Beta Strep: negative Antibiotics # of Doses: 0 Steroids Given: None Reason Steroids Not Administered: Not Applicable MEMBRANES Membranes Rupture Method: Spontaneous Rupture of Membranes: 03/29/2016 11:37 Length of Rupture (hr): 9.63 Amniotic Fluid Color: Clear Amniotic Fluid Amount: Small Amniotic Fluid Odor: Normal STAGES OF LABOR Stage 3 hr: 0 Stage 3 min: 0 Total Time in Labor hr: 4 Total Time in Labor min: 57 VAGINAL DELIVERY Laceration Extension: N/A CSECTION DELIVERY Primary Indication: Failure of Descent Secondary Indication: N/A CSection Urgency: Non-Scheduled CSection Incidence: Primary Elective: N/A BABY A INFORMATION Delivery Date/Time: 03/29/2016 21:15 Method of Delivery: Born in Route : No : N/A Forceps: N/A Vacuum Extraction: Successful Shoulder Dystocia : No PRESENTATION/POSITION BABY A Presentation: Cephalic Cephalic Presentation: Vertex Vertex Position: OP Breech Presentation: N/A PLACENTA INFORMATION BABY A Placenta Delivery Time : 03/29/2016 21:15 Placenta Method of Delivery: Manual Removal Placenta Status: Delivered SCORES BABY A Heart Rate 1 min: >100 bpm Resp Effort 1 min: Good Cry Reflex Irritability 1 min: Cough or Sneeze or Pulls Away Muscle Tone 1 min: Active Motion Color 1 min: Body [place], Extremities Blue Resuscitation Effort 1 min: Tactile Stimulation SCORE 1 MIN: 9 Heart Rate 5 min: >100 bpm Resp Effort 5 min: Good Cry Reflex Irritability 5 min: Cough or Sneeze or Pulls Away Muscle Tone 5 min: Active Motion Color 5 min: Body [place], Extremities Blue Resuscitation Effort 5 min: Tactile Stimulation SCORE 5 MIN: 9 INFORMATION BABY A Gestational Age at Delivery: 41.2 Gestational Status: Late Term- 41- 41.6 Weeks Outcome : Liveborn Condition : Stable Infant Sex: Male IDENTIFICATION BABY A Verification Date/Time: 03/29/2016 21:20 ID Band Number: [id number] Mother's Name Verified: Yes RN Verifying : K Merrit, RN Additional Verifying Personnel: R Ertel, STITCH BURNISHER WEIGHT/LENGTH BABY A Birthweight (gm): 3875 Infant Weight (lb): 8 Weight (oz): 9 Infant Length (in): 21.00 Length (cm): 53.34 CORD INFORMATION BABY A No. Cord Vessels: 3 Nuchal Cord : N/A Cord Blood Taken: Yes-For Eval (Mom's Blood Type - or O+) Infant Suction: None ASSESSMENT BABY A Infant Complications: None Physical Findings at Delivery: Within Normal Limits Infant Respirations: Appears Normal Skin to Skin: Yes Skin to Skin Time (min): 60 SIGNATURES : I personally evaluated and examined the patient in conjunction with the P and agree with the assessment, treatment plan and disposition.
[2016-03-30] MEDS ORDERED: ACETAMINOPHEN 100 ML IV ONE (01:15)
[2016-03-30] MEDS: KETOROLAC TROMETHAMINE INJ/PF 30 MG/1 ML SDV IV SCH ×2 (05:15→13:23)
--- NOTE | 2016-03-30 06:23 | L&D General Admission ---
General Admit Datetime Report Generated by CPN: 03/30/2016 06:00 INFORMATION Patient Age: 21 (03/11/2016 14:14:QS system process) EDC: 03/20/2016 00:00 (03/28/2016 17:35:SN Devyn) EDC per Ultrasound: 03/14/2016 00:00 (03/28/2016 17:35:SN Devyn) LMP: 06/14/2015 00:00 (03/28/2016 17:35:SN Devyn) : 1 (03/28/2016 17:35:SN Devyn) Para: 0 (03/28/2016 17:35:SN Devyn) Term: 0 (03/28/2016 17:35:SN Devyn) : 0 (03/28/2016 17:35:SN Devyn) Spontaneous Abortions: 0 (03/28/2016 17:35:SN Devyn) Induced Abortions: 0 (03/28/2016 17:35:Mavelyn Lew, SN) Livin (03/28/2016 17:35:Mavelyn Lew, SN) Cesareans: 0 (03/28/2016 17:35:Mavelyn Lew, SN) VBACs: 0 (03/28/2016 17:35:Mavelyn Lew, SN) Ectopic: 0 (03/28/2016 17:35:Mavelyn Lew, SN) Multiple Births: 0 (03/28/2016 17:35:Mavelyn Lew, SN) Baby, Number in Womb: 1 (03/28/2016 17:35:Mavelyn Lew, SN) CARE Primary [place] Worker: [facility] (03/28/2016 17:35:Mavelyn Lew, SN) Month of 1st Visit: September 2015 (03/28/2016 17:35:Mavelyn Lew, SN) Adequate Care: Yes (03/28/2016 17:35:Mavelyn Lew, SN) Prepregnancy Weight (lb): 174 (03/28/2016 17:35:Mavelyn Lew, SN) Prepregnancy Weight (kg): 79.1 (03/28/2016 17:35:QS system process) Height (in): 61 (03/30/2016 00:02:QS system process) ALLERGIES Medication Allergy: No (03/28/2016 17:35:Mavelyn Lew, SN) Medication Allergies: No Known Allergies (01/12/2016) (03/11/2016 14:14:QS system process) Latex Allergy: No Latex Allergies (03/28/2016 17:35:Luly Gonzalez RN) Food Allergies: NONE (03/28/2016 17:35:Luly Gonzalez RN) Environmental Allergies: NONE (03/28/2016 17:35:Luly Gonzalez RN) COMMUNICATION Primary Language: [place]er (03/28/2016 17:35:Mavelyn Lew, SN) Medical Tx Preferred Language: [place] (03/28/2016 17:35:Mavelyn Lew, SN) [place] Communication Ability: Speaks [place]; Reads [place] Islander (03/28/2016 17:35:Luly Gonzalez RN) Communication Barrier(s): None (03/28/2016 17:35:Mavelyn Lew, SN) DEMOGRAPHICS Address: [address] [place] [id number] (03/11/2016 14:14:QS system process) Zipcode: [address] (03/11/2016 14:14:QS system process) Home (03/11/2016 14:14:QS system process) Work (03/28/2016 18:12:QS system process) SSN: [id number] (03/11/2016 14:14:QS system process) Next of Kin Name: HOA LEROY (03/28/2016 18:12:QS system process) Next of Kin (03/28/2016 18:12:QS system process) Next of Kin Relationship: MO (03/28/2016 18:12:QS system process) Date of : 1995 (03/11/2016 14:14:QS system process) Marital Status: (03/11/2016 14:14:QS system process) Sex: Female (03/11/2016 14:14:QS system process) Race: (03/11/2016 14:14:QS system process) Ethnicity: Non- or (03/11/2016 14:14:QS system process) Episcopal: None (03/11/2016 14:14:QS system process) DRUG AND ALCOHOL USE Alcohol: No (03/28/2016 17:35:Mavelyn Lew, SN) Cigarettes: Never Smoker. [id number] (03/28/2016 17:35:Mavelyn Lew, SN) Marijuana: No (03/28/2016 17:35:Mavelyn Lew, SN) Cocaine: No (03/28/2016 17:35:Mavelyn Lew, SN) Other Illicit Drugs: No (03/28/2016 17:35:Mavelyn Lew, SN) VACCINE HISTORY Influenza Vaccine: Yes (03/28/2016 17:35:Mavelyn Lew, SN) Influenza Date: 12/25/2015 (03/28/2016 17:35:Mavelyn Lew, SN) Pneumococcal Vaccine: No (03/28/2016 17:35:Mavelyn Lew, SN) Tetanus Vaccine: Yes (03/28/2016 17:35:Mavelyn Lew, SN) Tdap Vaccine: Yes (03/28/2016 17:35:Mavelyn Lew, SN) Tdap Date: 12/25/2015 (03/28/2016 17:35:Mavelyn Lew, SN) Hepatitis B Vaccine: Yes (03/28/2016 17:35:Mavelyn Lew, SN) Geophysical Prospector: [facility] (03/28/2016 17:35:SN Devyn) Feeding Preference: Breast (03/28/2016 17:35:SN Devyn) Benefit of Breast Feed Discussed: Yes (03/28/2016 17:35:SN Devyn) Circumcision: Yes (03/28/2016 17:35:SN Devyn) Classes Attended: No (03/28/2016 17:35:SN Devyn) Tubal Ligation: No (03/28/2016 17:35:SN Devyn) Tubal Authorization Signed: N/A (03/28/2016 17:35:SN Devyn) Consent: N/A (03/28/2016 17:35:SN Devyn) Consent Signed: N/A (03/28/2016 17:35:SN Devyn) Pain Management Plans: Epidural (03/28/2016 17:35:SN Devyn) Plans for Labor and Delivery: None (03/28/2016 17:35:SN Devyn) Support Person: Luis Daniel Dinero (03/28/2016 17:35:SN Devyn) Support Person Relationship: (03/28/2016 17:35:SN Devyn) Cultural/Spritual Practice: No (03/28/2016 17:35:SN Devyn) Spir/Cult Dietary Needs: No (03/28/2016 17:35:SN Devyn) LIVING SITUATION/DISCHARGE PLAN Living Arrangements: House (03/28/2016 17:35:SN Devyn) Adequate Access to:: Electric; Heat; Refrigeration; Plumbing/Running water; Phone; Transportation (03/28/2016 17:35:SN Devyn) WIC Program: Yes (03/28/2016 17:35:SN Devyn) Discharge Director Of Public Works Person: Luis Daniel Metzlinson (03/28/2016 17:35:SN Devyn) Person to Help after Discharge: Luis Daniel Metzlinson (03/28/2016 17:35:SN Devyn) Currently Using Commun Resources: Yes (03/28/2016 17:35:SN Devyn) Outside Agency/Campus Recruiting Internship: No (03/28/2016 17:35:SN Devyn) Car Seat for Discharge: Yes (03/28/2016 17:35:SN Devyn) Adoption Requested: No (03/28/2016 17:35:SN Devyn) Pt Contact w/ Post : N/A (03/28/2016 17:35:SN Devyn) LABS Blood Type: O Positive (03/28/2016 17:35:SN Devyn) Antibody Screen: negative (03/28/2016 17:35:SN Devyn) Rho(G) this : Not Applicable (03/28/2016 17:35:SN Devyn) Hemoglobin: 11.9 L (03/28/2016 18:49:QS system process) Hematocrit: 36.4 (03/28/2016 18:49:QS system process) MCV: 86 (03/28/2016 18:49:QS system process) Group Beta Strep: negative (03/28/2016 17:35:SN Devyn) Gonorrhea: Negative (03/28/2016 17:35:SN Devyn) Chlamydia: Negative (03/28/2016 17:35:SN Devyn) RPR/VDRL: Nonreactive (03/28/2016 17:35:SN Devyn) HIV Exposure Test: Negative (03/28/2016 17:35:SN Devyn) Hepatitis B: Negative (03/28/2016 17:35:SN Devyn) Rubella: Immune (03/28/2016 17:35:SN Devyn) OB/PREVIOUS HISTORY LMP: 06/14/2015 00:00 (03/28/2016 17:35:SN Devyn) Previous Procedures: None (03/28/2016 17:35:SN Devyn) Current Procedures: Ultrasound; NST (03/28/2016 17:35:SN Devyn) History of Previous : No (03/28/2016 17:35:SN Devyn) History of Gestational Diabetes: No (03/28/2016 17:35:SN Devyn) History of PIH: No (03/28/2016 17:35:SN Devyn) History of Incompetent Cervix: No (03/28/2016 17:35:SN Devyn) History of Placenta Previa/Abrup: No (03/28/2016 17:35:SN Devyn) History of Macrosomia: No (03/28/2016 17:35:SN Devyn) History of IUGR: No (03/28/2016 17:35:SN Devyn) History of Hemorrhage: No (03/28/2016 17:35:SN Devyn) History of Loss/Stillborn: No (03/28/2016 17:35:SN Devyn) History of : No (03/28/2016 17:35:SN Devyn) History of D (Rh) Sensitization: No (03/28/2016 17:35:SN Devyn) History Recurrent Loss/Stillborn: No (03/28/2016 17:35:SN Devyn) History Depression/PP Depression: No (03/28/2016 17:35:SN Devyn) History of Uterine Anomaly/SAURABH: No (03/28/2016 17:35:SN Devyn) History of Infertility: No (03/28/2016 17:35:SN Devyn) History of ART Treatment: No (03/28/2016 17:35:SN Devyn) History of SAURABH: No (03/28/2016 17:35:SN Devyn) Comments Obstetrical History: G1 - current - s>d- late entry to care at 15wk (03/28/2016 17:35:SN Devyn) MEDICAL HISTORY Med Hx Diabetes: No (03/28/2016 17:35:SN Devyn) Med Hx Hypertension: No (03/28/2016 17:35:SN Devyn) Med Hx Heart Disease: No (03/28/2016 17:35:SN Devyn) Med Hx Autoimmune Disorder: No (03/28/2016 17:35:SN Devyn) Med Hx Kidney Disease/UTI: No (03/28/2016 17:35:SN Devyn) Med Hx Neurologic/Epilepsy: No (03/28/2016 17:35:SN Devyn) Med Hx Psychiatric Disorders: No (03/28/2016 17:35:SN Devyn) Med Hx Hepatitis/Liver Disease: No (03/28/2016 17:35:SN Devyn) Med Hx Varicosities/Phlebitis: No (03/28/2016 17:35:SN Devyn) Med Hx Thyroid Dysfunction: No (03/28/2016 17:35:SN Devyn) Med Hx Trauma/Violence: No (03/28/2016 17:35:SN Devyn) Med Hx Blood Transfusion: No (03/28/2016 17:35:SN Devyn) Med Hx Pulmonary (Asthma,TB): No (03/28/2016 17:35:SN Devyn) Med Hx Breast: No (03/28/2016 17:35:SN Devyn) Med Hx LIBRARY CIRCULATION TECHNICIAN Surgery: No (03/28/2016 17:35:SN Devyn) Med Hx Hospitalization/Surgery: No (03/28/2016 17:35:SN Devyn) Med Hx Anesthetic Complications: No (03/28/2016 17:35:SN Devyn) Med Hx Abnormal Pap Smear: No (03/28/2016 17:35:SN Devyn) Other Medical Diseases: No (03/28/2016 17:35:SN Devyn) Med Hx Significant Family Hx: No (03/28/2016 17:35:Mavelyn Lew, SN) INFECTIOUS HISTORY Inf Hx Gonorrhea: No (03/28/2016 17:35:Rob Hackett SN) Inf Hx Chlamydia: No (03/28/2016 17:35:Rob Hackett SN) Inf Hx Syphilis: No (03/28/2016 17:35:Rob Hackett SN) Inf Hx HIV/AIDS: No (03/28/2016 17:35:Rob Hackett SN) Inf Hx Human Papilloma Virus: No (03/28/2016 17:35:Staceyvelyjeniffer Hackett SN) Inf Hx Pt/Partner Genital Herpes: No (03/28/2016 17:35:Rob Hackett SN) Inf Hx Tuberculosis/Exposure: No (03/28/2016 17:35:Rob Hackett SN) Inf Hx Hepatitis B,C: No (03/28/2016 17:35:Staceyvelyjeniffer Hackett, SN) Inf Hx Rash or Viral Illness: No (03/28/2016 17:35:Staceyvelyjeniffer Hackett, SN) GENETIC HISTORY Gen Hx Age >=35 at ARELY: No (03/28/2016 17:35:SN Devyn) Gen Hx Thalassemia: No (03/28/2016 17:35:SN Devyn) Gen Hx Congenital Heart Defect: No (03/28/2016 17:35:SN Devyn) Gen Hx Neural Tube Defect: No (03/28/2016 17:35:SN Devyn) Gen Hx Down's Syndrome: No (03/28/2016 17:35:SN Devyn) Gen Hx Orlando-Sachs: No (03/28/2016 17:35:SN Devyn) Gen Hx Vannessa: No (03/28/2016 17:35:SN Devyn) Gen Hx Familial Dysautonomia: No (03/28/2016 17:35:SN Devyn) Gen Hx Sickle Cell Disease/Trait: No (03/28/2016 17:35:SN Devyn) Gen Hx Hemophilia/Blood Disorder: No (03/28/2016 17:35:SN Devyn) Gen Hx Muscular Dystrophy: No (03/28/2016 17:35:SN Devyn) Gen Hx Cystic Fibrosis: No (03/28/2016 17:35:SN Devyn) Gen Hx [place] Chorea: No (03/28/2016 17:35:SN Devyn) Gen Hx Mental Retardation/Autism: No (03/28/2016 17:35:SN Devyn) Gen Hx Tested for Fragile X: No (03/28/2016 17:35:SN Devyn) Gen Hx Other Inher/Chromosomal: No (03/28/2016 17:35:SN Devyn) Gen Hx Maternal Metabolic DO: No (03/28/2016 17:35:SN Devyn) Gen Hx Pt Father or FOB Defect: No (03/28/2016 17:35:SN Devyn) Gen Hx Other Genetic History: No (03/28/2016 17:35:SN Devyn) Gen Hx Drugs/Meds since LMP: No (03/28/2016 17:35:SN Devyn)
--- NOTE | 2016-03-30 07:00 | L&D Flow Sheet ---
LD Flowsheet Datetime Report Generated by CPN: 03/30/2016 07:00 Datetime: 03/29/2016 23:53 Pulse: 70 (QS system process) SpO2 (%): 97 (QS system process) Datetime: 03/29/2016 23:50 Temperature (F): 99.6 (Lennie Ledgerwood, RN) Temperature (C): 37.6 (QS system process) Temperature Route: Oral (Lennie Ledgerwood, RN) Datetime: 03/29/2016 23:48 Pulse: 69 (QS system process) SpO2 (%): 99 (QS system process) Datetime: 03/29/2016 23:43 Pulse: 76 (QS system process) SpO2 (%): 98 (QS system process) Datetime: 03/29/2016 23:42 NBP Sys/Maren/Mean (mmHg): 116 (QS system process) : 56 (QS system process) : 80 (QS system process) Pulse: 74 (QS system process) Datetime: 03/29/2016 23:38 Pulse: 70 (QS system process) SpO2 (%): 99 (QS system process) Datetime: 03/29/2016 23:35 Pain Scale: 0 (Annotations: pt is sleeping) (Lennie Ledgerwood, RN) Datetime: 03/29/2016 23:33 Pulse: 70 (QS system process) SpO2 (%): 98 (QS system process) Datetime: 03/29/2016 23:28 Pulse: 75 (QS system process) SpO2 (%): 97 (QS system process) Datetime: 03/29/2016 23:27 NBP Sys/Maren/Mean (mmHg): 112 (QS system process) : 59 (QS system process) : 81 (QS system process) Pulse: 71 (QS system process) Datetime: 03/29/2016 23:23 Pulse: 76 (QS system process) SpO2 (%): 97 (QS system process) Datetime: 03/29/2016 23:18 Pulse: 75 (QS system process) SpO2 (%): 97 (QS system process) Datetime: 03/29/2016 23:13 Pulse: 74 (QS system process) SpO2 (%): 97 (QS system process) Datetime: 03/29/2016 23:12 NBP Sys/Maren/Mean (mmHg): 112 (QS system process) : 58 (QS system process) : 80 (QS system process) Pulse: 64 (QS system process) Datetime: 03/29/2016 23:08 Pulse: 77 (QS system process) SpO2 (%): 98 (QS system process) Datetime: 03/29/2016 23:06 Pain Scale: 2 ([facility], ) Pain Presence: Constant ([facility]) Pain Type: Sharp ([facility], ) Pain Location: Abdomen ([facility]) Pain Relief Measures: Pain Medication Given (Annotations: Toradol 30 mg given) ([facility]) Datetime: 03/29/2016 23:05 Pain Scale: 2 (Lennie Ledgerwood, RN) Datetime: 03/29/2016 23:03 Pulse: 71 (QS system process) SpO2 (%): 98 (QS system process) Datetime: 03/29/2016 22:58 Pulse: 70 (QS system process) SpO2 (%): 98 (QS system process) Datetime: 03/29/2016 22:57 NBP Sys/Maren/Mean (mmHg): 117 (QS system process) : 57 (QS system process) : 80 (QS system process) Pulse: 67 (QS system process) Respirations: 16 (Lennie Ledgerwood, RN) Datetime: 03/29/2016 22:53 Pulse: 72 (QS system process) SpO2 (%): 97 (QS system process) Datetime: 03/29/2016 22:48 Pulse: 69 (QS system process) SpO2 (%): 98 (QS system process) Datetime: 03/29/2016 22:43 NBP Sys/Maren/Mean (mmHg): 113 (QS system process) : 63 (QS system process) : 80 (QS system process) Pulse: 67 (QS system process) Pulse: 70 (QS system process) SpO2 (%): 98 (QS system process) Datetime: 03/29/2016 22:38 Pulse: 72 (QS system process) SpO2 (%): 98 (QS system process) Datetime: 03/29/2016 22:33 Pulse: 73 (QS system process) SpO2 (%): 99 (QS system process) Datetime: 03/29/2016 22:28 Pulse: 75 (QS system process) SpO2 (%): 100 (QS system process) Datetime: 03/29/2016 22:23 Pulse: 84 (QS system process) SpO2 (%): 100 (QS system process) Datetime: 03/29/2016 22:20 Pain Scale: 0 (Lennie Ledgerwood, RN) Datetime: 03/29/2016 22:18 Pulse: 106 (QS system process) SpO2 (%): 99 (QS system process) Datetime: 03/29/2016 22:13 Pulse: 69 (QS system process) SpO2 (%): 100 (QS system process) Datetime: 03/29/2016 22:12 NBP Sys/Maren/Mean (mmHg): 112 (QS system process) : 58 (QS system process) : 80 (QS system process) Pulse: 73 (QS system process) Respirations: 14 (Lennie Ledgerwood, RN) Datetime: 03/29/2016 22:08 Pulse: 86 (QS system process) SpO2 (%): 100 (QS system process) Datetime: 03/29/2016 22:05 Stage of : Recovery (Lennie Juliann, THOMAS) Temperature (F): 97.8 (Lennie Ledgerwood, RN) Temperature (C): 36.6 (QS system process) Temperature Route: Oral (Lennie Humphreys, THOMAS) Pain Scale: 0 (Lennie Juliann, ) Pain Type: N/A ([facility] Datetime: 03/29/2016 22:03 Pulse: 105 (QS system process) Pulse: 101 (QS system process) SpO2 (%): 86 (QS system process) SpO2 (%): 81 (QS system process) LaborFlag: Labor (QS system process) Datetime: 03/29/2016 21:08 Communication Comments: OR 2 called and stated the DEICER INSPECTOR ELECTRIC was not here. K Lizzeth, DEICER INSPECTOR ELECTRIC notified. She states that she is not maintenance and operations supervisor and Ilene Orantes, DEICER INSPECTOR ELECTRIC is. Ilene notified and states it would take her 15 min. to get here. Asked that NBN RN call her from OR. (Oxana Doreen, RN) Datetime: 03/29/2016 21:00 Procedure Verify: Correct Patient Identity; Correct Side and Site are Marked; Correct Patient Position (Lennie Ledgerwood, RN) Datetime: 03/29/2016 20:41 Patient Care Comments: Off to OR (Lennie Ledgerwood, RN) Datetime: 03/29/2016 20:38 Patient Care Comments: pt reports of nausea feeling (Lennie Ledgerwood, RN) Datetime: 03/29/2016 20:30 Monitor Mode: Internal (Lennie Ledgerwood, RN) Frequency (min): 2.5-3.5 (Lennie Ledgerwood, RN) Quality: Moderate to Strong (Lennie Ledgerwood, RN) Duration (sec): 60-80 (Lennie Ledgerwood, RN) Duration Criteria: Less than Two 120 Second Contractions (Lennie Ledgerwood, RN) Pattern: Normal: <= 5 Contractions in 10 Minutes (Lennie Ledgerwood, RN) Resting Tone (Palpate): Relaxed (Lennie Ledgerwood, RN) Monitor Mode: External US (Lennie Ledgerwood, RN) FHR Baseline Rate : 160 (Lennie Ledgerwood, RN) FHR Baseline Changes: No Baseline Change (Lennie Ledgerwood, RN) Variability: Moderate 6-25 bpm (Lennie Ledgerwood, RN) Accelerations: None (Lennie Ledgerwood, RN) Decelerations: None (Lennie Ledgerwood, RN) Datetime: 03/29/2016 20:22 Antibiotics: Ancef IV (Gm) @ 2g ([facility], [facility]) Antiemetics/Antacids: Bicitra 15 ml PO (Lennie [facility], RN) Datetime: 03/29/2016 20:20 Anesthesia Comments: Epidural pump stopped per Dr. Kendrick's request. (Oxana Lynnoon, RN) Datetime: 03/29/2016 20:18 Communication Comments: Bhumi Moreau, DEICER INSPECTOR ELECTRIC notified of impendiing . (Oxana Logan, RN) Datetime: 03/29/2016 20:17 NBP Sys/Maren/Mean (mmHg): 126 (QS system process) : 73 (QS system process) : 92 (QS system process) Pulse: 83 (QS system process) LaborFlag: Labor (QS system process) Datetime: 03/29/2016 20:16 Communication Comments: Mary, Nursing Integrity Analyst notified of impending . (Oxana Doreen, RN) Datetime: 03/29/2016 20:15 Monitor Mode: Internal (Lennie Ledgerwood, RN) Frequency (min): 2.5-3.5 (Lennie Humphreys RN) Quality: Moderate to Strong (Lennie Humphreys RN) Duration (sec): 80-100 (Lennie Humphreys RN) Duration Criteria: Less than Two 120 Second Contractions (Lennie Humphreys RN) Pattern: Normal: <= 5 Contractions in 10 Minutes (Lennie Humphreys RN) Resting Tone (Palpate): Relaxed (Lnenie Humphreys RN) Pitocin (milliunit): Pitocin Remains (milliunits) @ 20 (Lennie Humphreys RN) Medication Comments: PITOCIN OFF (Jennifer Mcfarlane RN) Communication Comments: NBN notified of impending . (Oxana Logan RN) Datetime: 03/29/2016 20:14 Communication Comments: has been called by Dr Man. (Lennie Humphreys RN) Datetime: 03/29/2016 20:12 Dilatation (cm): 4.0 (Lennie Humphreys RN) Effacement (%): 80 (Lennie Humphreys RN) Station: -2 (Lennie Humphreys RN) Exam by: Dr Man (Lennie Humphreys RN) Communication: Provider Orders Received (Jennifer Mcfarlane RN) Communication Comments: DR Man on unit, decision made for section d/t failure to progress (Jennifer Mcfarlane RN) Datetime: 03/29/2016 20:10 Communication: Provider at Bedside (Lennie Humphreys RN) Communication Comments: Dr Man at bedside. (Lennie Humphreys RN) Datetime: 03/29/2016 20:02 Patient Position/Activity: Peanut Ball; Right Extreme (Lennie Humphreys RN) Patient Care Comments: position changed (Lennie Humphreys RN) Datetime: 03/29/2016 20:00 Monitor Mode: Internal (Lennie Ledgerwood, RN) Frequency (min): 2-3 (Lennie Ledgerwood, RN) Quality: Moderate to Strong (Lennie Ledgerwood, RN) Duration (sec): 70-90 (Lennie Ledgerwood, RN) Duration Criteria: Less than Two 120 Second Contractions (Lennie Ledgerwood, RN) Pattern: Normal: <= 5 Contractions in 10 Minutes (Lennie Ledgerwood, RN) Resting Tone (Palpate): Relaxed (Lennie Ledgerwood, RN) Monitor Mode: External US (Lennie Ledgerwood, RN) FHR Baseline Rate : 155 (Lennie Ledgerwood, RN) FHR Baseline Changes: No Baseline Change (Lennie Ledgerwood, RN) Variability: Moderate 6-25 bpm (Lennie Ledgerwood, RN) Accelerations: 15X15 (Lennie Ledgerwood, RN) Decelerations: Late (Lennie Ledgerwood, RN) Pitocin (milliunit): Pitocin Remains (milliunits) @ 20 (Lennie Ledgerwood, RN) Datetime: 03/29/2016 19:46 NBP Sys/Maren/Mean (mmHg): 118 (QS system process) : 78 (QS system process) : 94 (QS system process) Pulse: 94 (QS system process) Respirations: 14 (Lennie Ledgerwood, RN) LaborFlag: Labor (QS system process) Datetime: 03/29/2016 19:45 Monitor Mode: Internal (Lennie Ledgerwood, RN) Frequency (min): 1.5-2.5 (Lennie Ledgerwood, RN) Quality: Moderate (Lennie Ledgerwood, RN) Duration (sec): 70-90 (Lennie Ledgerwood, RN) Duration Criteria: Less than Two 120 Second Contractions (Lennie Ledgerwood, RN) Pattern: Normal: <= 5 Contractions in 10 Minutes (Lennie Ledgerwood, RN) Resting Tone (Palpate): Relaxed (Lennie Ledgerwood, RN) Monitor Mode: External US (Lennie Ledgerwood, RN) FHR Baseline Rate : 150 (Lennie Ledgerwood, RN) FHR Baseline Changes: No Baseline Change (Lennie Ledgerwood, RN) Variability: Moderate 6-25 bpm (Lennie Ledgerwood, RN) Accelerations: 15X15 (Lennie Ledgerwood, RN) Decelerations: None; Variable (Lennie Ledgerwood, RN) Datetime: 03/29/2016 19:30 Monitor Mode: Internal (Lennie Ledgerwood, RN) Frequency (min): 2.5 (Lennie Ledgerwood, RN) Quality: Moderate (Lennie Ledgerwood, RN) Duration (sec): 60-90 (Lennie Ledgerwood, RN) Duration Criteria: Less than Two 120 Second Contractions (Lennie Ledgerwood, RN) Pattern: Normal: <= 5 Contractions in 10 Minutes (Lennie Ledgerwood, RN) Resting Tone (Palpate): Relaxed (Lennie Ledgerwood, RN) Resting Tone IUP (mmHg): 35 (Lennie Ledgerwood, RN) Intensity IUP (mmHg): 75 (Lennie Ledgerwood, RN) Contraction Comments: MVUs 130 (Lennie Ledgerwood, RN) Monitor Mode: External US (Lennie Ledgerwood, RN) FHR Baseline Rate : 145 (Lennie Ledgerwood, RN) FHR Baseline Changes: No Baseline Change (Lennie Ledgerwood, RN) Variability: Moderate 6-25 bpm (Lennie Ledgerwood, RN) Accelerations: 15X15 (Lennie Ledgerwood, RN) Decelerations: None; Variable (Lennie Ledgerwood, RN) Datetime: 03/29/2016 19:22 Pain Scale: 2 (Lennie Ledgerwood, RN) Pain Presence: Intermittent (Lennie Ledgerwood, RN) Pain Type: Contraction (Lennie Ledgerwood, RN) Pain Location: Abdomen (Lennie Ledgerwood, RN) Pain Relief Measures: pt has Epidural (Lennie Ledgerwood, RN) Level of Consciousness: Fully Conscious (Lennie Ledgerwood, RN) DTR's/Clonus: DTRs 2+; No Clonus (Lennie Ledgerwood, RN) Headache: Denies (Lennie Humphreys RN) Breath Sounds, Left: Clear and Equal (Lennie Humphreys RN) Breath Sounds, Right: Clear and Equal (Lennie Humphreys RN) Nausea/Vomiting: Denies (Lennie Humphreys RN) RUQ Epigastric Pain: Denies (Lennie Humphreys RN) Instructional Method: Demo; Verbal; Patient Instructed (Lennie Humphreys RN) Plan of Care: Plan of Care Discussed (Lennie Humphreys RN) LaborFlag: Labor (QS system process) Datetime: 03/29/2016 19:18 Communication Comments: Report received from Gal Gonzalez RN at bedside (Lennie Humphreys RN) Datetime: 03/29/2016 19:17 NBP Sys/Maren/Mean (mmHg): 117 (QS system process) : 74 (QS system process) : 90 (QS system process) Pulse: 86 (QS system process) LaborFlag: Labor (QS system process) Datetime: 03/29/2016 19:15 Monitor Mode: Internal (Lennie Ledgerwood, RN) Frequency (min): 2.5-3 (Lennie Ledgerwood, RN) Quality: Moderate (Lennie Ledgerwood, RN) Duration (sec): 60-80 (Lennie Ledgerwood, RN) Duration Criteria: Less than Two 120 Second Contractions (Lennie Ledgerwood, RN) Pattern: Normal: <= 5 Contractions in 10 Minutes (Lennie Ledgerwood, RN) Resting Tone (Palpate): Relaxed (Lennie Ledgerwood, RN) Monitor Mode: External US (Lennie Ledgerwood, RN) FHR Baseline Rate : 150 (Lennie Ledgerwood, RN) FHR Baseline Changes: No Baseline Change (Lennie Ledgerwood, RN) Variability: Moderate 6-25 bpm (Lennie Ledgerwood, RN) Accelerations: 15X15 (Lennie Ledgerwood, RN) Decelerations: None; Variable (Lennie Ledgerwood, RN) Pitocin (milliunit): Pitocin Remains (milliunits) @ 20 (Lennie Ledgerwood, RN) Datetime: 03/29/2016 19:00 Monitor Mode: Internal (Luly Gonzalez RN) Frequency (min): 2-3 (Luly Gonzalez RN) Quality: Moderate (Luly Gonzalez RN) Duration (sec): 60-100 (Luly Gonzalez RN) Resting Tone (Palpate): Relaxed (Luly Gonzalez RN) Resting Tone IUP (mmHg): 25 (Luly Gonzalez RN) Monitor Mode: External US (Luly Gonzalez RN) FHR Baseline Rate : 150 (Luly Gonzalez RN) Variability: Moderate 6-25 bpm (Luly Gonzalez RN) Accelerations: 15X15 (Luly Gonzalez RN) Decelerations: Variable (Luly Gonzalez RN)
[2016-03-30 07:37] LABS: HEMATOCRIT 31.8 % (36.0-47.0); HEMOGLOBIN 10.7 g/dL (12.0-15.5); HGB HCT DIFFERENCE 0.3; MEAN CORPUSCULAR HGB CONC 33.6 g/dL (32.0-36.0); MEAN CORPUSCULAR VOLUME 86 fl (80-97); RED BLOOD COUNT 3.69 10^6/uL (3.72-5.28); RED CELL DISTRIBUTION WIDTH 14.6 % (11.5-14.0); WHITE BLOOD COUNT 12.9 10^3/uL (4.0-10.5)
[2016-03-30] MEDS: OXYCODONE-ACETAMINOPHEN 5-325 MG TABLET PO PRN ×3 (10:12→21:20)
[2016-03-30] MEDS: DOCUSATE SODIUM 100 MG CAPSULE PO SCH ×2 (10:13→17:11)
[2016-03-30] MEDS: PRENATAL VITAMIN W-O CA NO5/FE FUMARATE/FA CAPSULE PO SCH (10:13)
--- NOTE | 2016-03-30 13:27 | PDOC PROGRESS REPORT ---
Subjective-OB Subjective: Post Delivery Day: 21 year old. Denies any needs at this time s/p primary c/ section pt sitting up offers no complaints eating regular diet lungs ctab s1s2 no murmurs +bowel sounds x4 +flatus -bm abdomen soft- incision dry and intact encouraged pt to ambulate Physical Exam (OB) Vital Signs: Temp Pulse Resp BP Pulse Ox 98.3 F 100 17 113/65 97 03/30/16 12:06 03/30/16 12:06 03/30/16 12:06 03/30/16 12:06 03/30/16 12:06 Intake & Output 03/29/16 03/30/16 03/31/16 06:59 06:59 06:59 Output Total 700 Balance -700 Weight 92.164 kg - Dressing Removed: No - opsite Incision: Well Approximated - Lochia Lochia Amount: Scant < 10 ml Lochia Color: Rubra/Red - Abdomen Description: Soft Hernia Present: No Fundal Description: Firm, Midline Fundal Height: u/u - u/2 Objective-Diagnostic Laboratory: 03/30/16 07:09 03/30/16 07:09 WBC 12.9 H RBC 3.69 L Hgb 10.7 L Hct 31.8 L MCV 86 MCH 29.0 MCHC 33.6 RDW 14.6 H Plt Count 150
--- NOTE | 2016-03-30 18:27 | L&D General Admission ---
General Admit Datetime Report Generated by CPN: 03/30/2016 18:00 INFORMATION Patient Age: 21 (03/11/2016 14:14:QS system process) EDC: 03/20/2016 00:00 (03/28/2016 17:35:SN Devyn) EDC per Ultrasound: 03/14/2016 00:00 (03/28/2016 17:35:SN Devyn) LMP: 06/14/2015 00:00 (03/28/2016 17:35:SN Devyn) : 1 (03/28/2016 17:35:SN Devyn) Para: 0 (03/28/2016 17:35:SN Devyn) Term: 0 (03/28/2016 17:35:SN Devyn) : 0 (03/28/2016 17:35:SN Devyn) Spontaneous Abortions: 0 (03/28/2016 17:35:SN Devyn) Induced Abortions: 0 (03/28/2016 17:35:Mavelyn Lew, SN) Livin (03/28/2016 17:35:Mavelyn Lew, SN) Cesareans: 0 (03/28/2016 17:35:Mavelyn Lew, SN) VBACs: 0 (03/28/2016 17:35:Mavelyn Lew, SN) Ectopic: 0 (03/28/2016 17:35:Mavelyn Lew, SN) Multiple Births: 0 (03/28/2016 17:35:Mavelyn Lew, SN) Baby, Number in Womb: 1 (03/28/2016 17:35:Mavelyn Lew, SN) CARE Primary Power Bender Operator: [facility] (03/28/2016 17:35:Mavelyn Lew, SN) Month of 1st Visit: September 2015 (03/28/2016 17:35:Mavelyn Lew, SN) Adequate Care: Yes (03/28/2016 17:35:Mavelyn Lew, SN) Prepregnancy Weight (lb): 174 (03/28/2016 17:35:Mavelyn Lew, SN) Prepregnancy Weight (kg): 79.1 (03/28/2016 17:35:QS system process) Height (in): 61 (03/30/2016 14:54:QS system process) ALLERGIES Medication Allergy: No (03/28/2016 17:35:Mavelyn Lew, SN) Medication Allergies: No Known Allergies (01/12/2016) (03/11/2016 14:14:QS system process) Latex Allergy: No Latex Allergies (03/28/2016 17:35:Luly Gonzalez RN) Food Allergies: NONE (03/28/2016 17:35:Luly Gonzalez RN) Environmental Allergies: NONE (03/28/2016 17:35:Luly Gonzalez RN) COMMUNICATION Primary Language: Moldovan (03/28/2016 17:35:Mavelyn Lew, SN) Medical Tx Preferred Language: Moldovan (03/28/2016 17:35:Mavelyn Lew, SN) Moldovan Communication Ability: Speaks Moldovan; Reads Moldovan (03/28/2016 17:35:Luly Gonzalez RN) Communication Barrier(s): None (03/28/2016 17:35:Mavelyn Lew, SN) DEMOGRAPHICS Address: [address] [place] [id number] (03/11/2016 14:14:QS system process) Zipcode: [address] (03/11/2016 14:14:QS system process) Home (03/11/2016 14:14:QS system process) Work (03/28/2016 18:12:QS system process) SSN: [id number] (03/11/2016 14:14:QS system process) Next of Kin Name: HOA LEROY (03/28/2016 18:12:QS system process) Next of Kin (03/28/2016 18:12:QS system process) Next of Kin Relationship: MO (03/28/2016 18:12:QS system process) Date of : 1995 (03/11/2016 14:14:QS system process) Marital Status: (03/11/2016 14:14:QS system process) Sex: Female (03/11/2016 14:14:QS system process) Race: (03/11/2016 14:14:QS system process) Ethnicity: Non- or (03/11/2016 14:14:QS system process) Oriental Orthodox: None (03/11/2016 14:14:QS system process) DRUG AND ALCOHOL USE Alcohol: No (03/28/2016 17:35:Mavelyn Lew, SN) Cigarettes: Never Smoker. [id number] (03/28/2016 17:35:Mavelyn Lew, SN) Marijuana: No (03/28/2016 17:35:Mavelyn Lew, SN) Cocaine: No (03/28/2016 17:35:Mavelyn Lew, SN) Other Illicit Drugs: No (03/28/2016 17:35:Mavelyn Lew, SN) VACCINE HISTORY Influenza Vaccine: Yes (03/28/2016 17:35:Mavelyn Lew, SN) Influenza Date: 12/25/2015 (03/28/2016 17:35:Mavelyn Lew, SN) Pneumococcal Vaccine: No (03/28/2016 17:35:Mavelyn Lew, SN) Tetanus Vaccine: Yes (03/28/2016 17:35:Mavelyn Lew, SN) Tdap Vaccine: Yes (03/28/2016 17:35:Mavelyn Lew, SN) Tdap Date: 12/25/2015 (03/28/2016 17:35:Mavelyn Lew, SN) Hepatitis B Vaccine: Yes (03/28/2016 17:35:Mavelyn Lew, SN) Drum Stenciler: [facility] (03/28/2016 17:35:SN Devyn) Feeding Preference: Breast (03/28/2016 17:35:SN Devyn) Benefit of Breast Feed Discussed: Yes (03/28/2016 17:35:SN Devyn) Circumcision: Yes (03/28/2016 17:35:SN Devyn) Classes Attended: No (03/28/2016 17:35:SN Devyn) Tubal Ligation: No (03/28/2016 17:35:SN Devyn) Tubal Authorization Signed: N/A (03/28/2016 17:35:SN Devyn) Consent: N/A (03/28/2016 17:35:SN Devyn) Consent Signed: N/A (03/28/2016 17:35:SN Devyn) Pain Management Plans: Epidural (03/28/2016 17:35:SN Devyn) Plans for Labor and Delivery: None (03/28/2016 17:35:SN Devyn) Support Person: Luis Daniel Dinero (03/28/2016 17:35:SN Devyn) Support Person Relationship: (03/28/2016 17:35:SN Devyn) Cultural/Spritual Practice: No (03/28/2016 17:35:SN Devyn) Spir/Cult Dietary Needs: No (03/28/2016 17:35:SN Devyn) LIVING SITUATION/DISCHARGE PLAN Living Arrangements: House (03/28/2016 17:35:SN Devyn) Adequate Access to:: Electric; Heat; Refrigeration; Plumbing/Running water; Phone; Transportation (03/28/2016 17:35:SN Devyn) WIC Program: Yes (03/28/2016 17:35:SN Devyn) Discharge Vegetable Packer Person: Luis Daniel Metzlinson (03/28/2016 17:35:SN Devyn) Person to Help after Discharge: Luis Daniel Metzlinson (03/28/2016 17:35:SN Devyn) Currently Using Commun Resources: Yes (03/28/2016 17:35:SN Devyn) Outside Agency/Honey Processor: No (03/28/2016 17:35:SN Devyn) Car Seat for Discharge: Yes (03/28/2016 17:35:SN Devyn) Adoption Requested: No (03/28/2016 17:35:SN Devyn) Pt Contact w/ Post : N/A (03/28/2016 17:35:SN Devyn) LABS Blood Type: O Positive (03/28/2016 17:35:SN Devyn) Antibody Screen: negative (03/28/2016 17:35:SN Devyn) Rho(G) this : Not Applicable (03/28/2016 17:35:SN Devyn) Hemoglobin: 10.7 L (03/30/2016 07:09:QS system process) Hematocrit: 31.8 L (03/30/2016 07:09:QS system process) MCV: 86 (03/30/2016 07:09:QS system process) Group Beta Strep: negative (03/28/2016 17:35:SN Devyn) Gonorrhea: Negative (03/28/2016 17:35:SN Devyn) Chlamydia: Negative (03/28/2016 17:35:SN Devyn) RPR/VDRL: Nonreactive (03/28/2016 17:35:SN Devyn) HIV Exposure Test: Negative (03/28/2016 17:35:SN Devyn) Hepatitis B: Negative (03/28/2016 17:35:SN Devyn) Rubella: Immune (03/28/2016 17:35:SN Devyn) OB/PREVIOUS HISTORY LMP: 06/14/2015 00:00 (03/28/2016 17:35:SN Devyn) Previous Procedures: None (03/28/2016 17:35:SN Devyn) Current Procedures: Ultrasound; NST (03/28/2016 17:35:SN Devyn) History of Previous : No (03/28/2016 17:35:SN Devyn) History of Gestational Diabetes: No (03/28/2016 17:35:SN Devyn) History of PIH: No (03/28/2016 17:35:SN Devyn) History of Incompetent Cervix: No (03/28/2016 17:35:SN Devyn) History of Placenta Previa/Abrup: No (03/28/2016 17:35:SN Devyn) History of Macrosomia: No (03/28/2016 17:35:SN Devyn) History of IUGR: No (03/28/2016 17:35:SN Devyn) History of Hemorrhage: No (03/28/2016 17:35:SN Devyn) History of Loss/Stillborn: No (03/28/2016 17:35:SN Devyn) History of : No (03/28/2016 17:35:SN Devyn) History of D (Rh) Sensitization: No (03/28/2016 17:35:SN Devyn) History Recurrent Loss/Stillborn: No (03/28/2016 17:35:SN Devyn) History Depression/PP Depression: No (03/28/2016 17:35:SN Devyn) History of Uterine Anomaly/SAURABH: No (03/28/2016 17:35:SN Devyn) History of Infertility: No (03/28/2016 17:35:SN Devyn) History of ART Treatment: No (03/28/2016 17:35:SN Devyn) History of SAURABH: No (03/28/2016 17:35:SN Devyn) Comments Obstetrical History: G1 - current - s>d- late entry to care at 15wk (03/28/2016 17:35:SN Devyn) MEDICAL HISTORY Med Hx Diabetes: No (03/28/2016 17:35:SN Devyn) Med Hx Hypertension: No (03/28/2016 17:35:SN Devyn) Med Hx Heart Disease: No (03/28/2016 17:35:SN Devyn) Med Hx Autoimmune Disorder: No (03/28/2016 17:35:SN Devyn) Med Hx Kidney Disease/UTI: No (03/28/2016 17:35:SN Devyn) Med Hx Neurologic/Epilepsy: No (03/28/2016 17:35:SN Devyn) Med Hx Psychiatric Disorders: No (03/28/2016 17:35:SN Devyn) Med Hx Hepatitis/Liver Disease: No (03/28/2016 17:35:SN Devyn) Med Hx Varicosities/Phlebitis: No (03/28/2016 17:35:SN Devyn) Med Hx Thyroid Dysfunction: No (03/28/2016 17:35:SN Devyn) Med Hx Trauma/Violence: No (03/28/2016 17:35:SN Devyn) Med Hx Blood Transfusion: No (03/28/2016 17:35:SN Devyn) Med Hx Pulmonary (Asthma,TB): No (03/28/2016 17:35:SN Devyn) Med Hx Breast: No (03/28/2016 17:35:SN Devyn) Med Hx SURGICAL PATHOLOGIST Surgery: No (03/28/2016 17:35:SN Devyn) Med Hx Hospitalization/Surgery: No (03/28/2016 17:35:SN Devyn) Med Hx Anesthetic Complications: No (03/28/2016 17:35:SN Devyn) Med Hx Abnormal Pap Smear: No (03/28/2016 17:35:SN Devyn) Other Medical Diseases: No (03/28/2016 17:35:SN Devyn) Med Hx Significant Family Hx: No (03/28/2016 17:35:Mavelyn Lew, SN) INFECTIOUS HISTORY Inf Hx Gonorrhea: No (03/28/2016 17:35:Rob Hackett SN) Inf Hx Chlamydia: No (03/28/2016 17:35:Rob Hackett SN) Inf Hx Syphilis: No (03/28/2016 17:35:Rob Hackett SN) Inf Hx HIV/AIDS: No (03/28/2016 17:35:Rob Hackett SN) Inf Hx Human Papilloma Virus: No (03/28/2016 17:35:Rob Hackett SN) Inf Hx Pt/Partner Genital Herpes: No (03/28/2016 17:35:Rob Hackett SN) Inf Hx Tuberculosis/Exposure: No (03/28/2016 17:35:Rob Hackett SN) Inf Hx Hepatitis B,C: No (03/28/2016 17:35:Rob Hackett SN) Inf Hx Rash or Viral Illness: No (03/28/2016 17:35:Rob Hackett SN) GENETIC HISTORY Gen Hx Age >=35 at ARELY: No (03/28/2016 17:35:SN Devyn) Gen Hx Thalassemia: No (03/28/2016 17:35:SN Devyn) Gen Hx Congenital Heart Defect: No (03/28/2016 17:35:SN Devyn) Gen Hx Neural Tube Defect: No (03/28/2016 17:35:SN Devyn) Gen Hx Down's Syndrome: No (03/28/2016 17:35:SN Devyn) Gen Hx [place]-Sachs: No (03/28/2016 17:35:SN Devyn) Gen Hx Vannessa: No (03/28/2016 17:35:SN Devyn) Gen Hx Familial Dysautonomia: No (03/28/2016 17:35:SN Devyn) Gen Hx Sickle Cell Disease/Trait: No (03/28/2016 17:35:SN Devyn) Gen Hx Hemophilia/Blood Disorder: No (03/28/2016 17:35:SN Devyn) Gen Hx Muscular Dystrophy: No (03/28/2016 17:35:SN Devyn) Gen Hx Cystic Fibrosis: No (03/28/2016 17:35:SN Devyn) Gen Hx [place] Chorea: No (03/28/2016 17:35:SN Devyn) Gen Hx Mental Retardation/Autism: No (03/28/2016 17:35:SN Devyn) Gen Hx Tested for Fragile X: No (03/28/2016 17:35:SN Devyn) Gen Hx Other Inher/Chromosomal: No (03/28/2016 17:35:SN Devyn) Gen Hx Maternal Metabolic DO: No (03/28/2016 17:35:SN Devyn) Gen Hx Pt Father or FOB Defect: No (03/28/2016 17:35:SN Devyn) Gen Hx Other Genetic History: No (03/28/2016 17:35:SN Devyn) Gen Hx Drugs/Meds since LMP: No (03/28/2016 17:35:SN Devyn)
--- NOTE | 2016-03-30 18:27 | L&D Current Admission ---
Current Admit Datetime Report Generated by CPN: 03/30/2016 18:00 ADMISSION INFORMATION Current Admit Date/Time: 03/28/2016 18:57 (03/28/2016 18:57:SN Devyn) Reason for Admission: Induction of Labor (03/28/2016 18:57:SN Devyn) Chief Complaint: Scheduled Induction of Labor (03/29/2016 19:22:Lennie Humphreys RN) Medications During : Vitamin (03/28/2016 18:57:SN Devyn) EGA per Dates: 41.1 (03/28/2016 18:57:QS system process) EGA per US: 42.0 (03/28/2016 18:57:QS system process) Method of Arrival: Ambulatory (03/28/2016 18:57:SN Devyn) Admitted From: Home (03/28/2016 18:57:SN Devyn) Reason for Induction: Postterm (03/28/2016 18:57:SN Devyn) Records Available: Yes (03/28/2016 18:57:SN Devyn) General Admission Information: Reviewed; Updated; Confirmed (03/28/2016 18:57:SN Devyn) General Admission Reviewed By: Bacilio Hancock RN (03/28/2016 18:57:SN Devyn) BELONGINGS/ADVANCED DIRECTIVES Valuables/Personal Effects: Cell Phone (03/28/2016 18:57:SN Devny) Other Belongings: See belonging sheet (03/28/2016 18:57:SN Devyn) Disposition of Belongings: Kept with Patient (03/28/2016 18:57:SN Devyn) Advance Direct for Healthcare: No, and Wants No Information (03/28/2016 18:57:SN Devyn) Durable Power of Public Works Manager: No (03/28/2016 18:57:SN Devyn) Living Will: No (03/28/2016 18:57:SN Devyn) Organ Donor: Yes (03/28/2016 18:57:SN Devyn) Pt Rights Information Given: Yes (03/28/2016 18:57:SN Devyn) Pt Understands Pt Rights: Yes (03/28/2016 18:57:SN Devyn) LEARNING ASSESSMENT Knowledge Level: Understands L_D Process; Understands Care Activities; Had Pre-Hospital Education; Understands Diagnosis (03/28/2016 18:57:SN Devyn) Barriers to Learning: None (03/28/2016 18:57:SN Devyn) Learning Readiness: Motivated (03/28/2016 18:57:SN Devyn) Learns Best By: 1 to 1 Instruction (03/28/2016 18:57:SN Devyn) Learning Needs: Labor and Delivery Process; Pain Management; Symptoms to Report; Treatment Plan; Medication; Diagnosis; Nutrition; Equipment; Infant Care; Community Resources (03/28/2016 18:57:SN Devyn) DOMESTIC VIOLANCE SCREENING Dom Viol Threatened/Hurt: No (03/28/2016 18:57:SN Devyn) Hx of Abuse/Neglect past 2yrs: No (03/28/2016 18:57:SN Devyn) Feel Unsafe Going Home: No (03/28/2016 18:57:SN Devyn) Addt'l Observ Indicating Abuse: No (03/28/2016 18:57:SN Devyn) Reason Unable to Complete Screen: N/A, Screen Completed (03/28/2016 18:57:SN Devyn) Considered Personal Harm/Suicide: No (03/28/2016 18:57:SN Devyn) NUTRITIONAL/FUNCTIONAL SCREENING Problem with Appetite >5 Days: No (03/28/2016 18:57:SN Devyn) Chew/Swallow Difficulties: No (03/28/2016 18:57:SN Devyn) Inappropriate Wt Gain/Loss: No (03/28/2016 18:57:SN Devyn) Presence Skin Breakdown/Ulcer: No (03/28/2016 18:57:SN Devyn) Special Diet: No (03/28/2016 18:57:SN Devyn) Pt Requests Collection Administrator Visit: No (03/28/2016 18:57:SN Devyn) Hx of Any of the Following?: N/A (03/28/2016 18:57:SN Devyn) New Diagnosis of: N/A (03/28/2016 18:57:SN Devyn) Requires Assist w/Ambulation: No (03/28/2016 18:57:SN Devyn) Uses Assist Device to Ambulate: No (03/28/2016 18:57:SN Devyn) Pt Requires Help w/ADL's: No (03/28/2016 18:57:SN Devyn)
--- NOTE | 2016-03-30 18:32 | L&D Care Plan ---
LD CARE PLANS Datetime Report Generated by CPN: 03/30/2016 18:15 Datetime: 03/28/2016 17:28 State: Risk For (SN Devyn) Related To: Labor and Delivery Process; Treatment and Procedures (SN Devyn) Goal(s): Patients Pain will be Assessed and Managed; Patient will Verbalize Adequate Relief of Pain or the Ability to [place] with Current Pain (SN Devyn) Interventions: Assess Pain Severity on Scale of 0 (None) to 5 (Severe); Assess Type, Location and Intensity of Pain Each Time Client Reports Discomfort and Notify Provider if Unusal Pain Develops; Encourage Proper Breathing and Relaxation Techniques; Offer Alternatives Such as Repositioning, Calm Environment, Massages, Diversional Activities, Ice Pack, Splinting, and Ambulation; Administer Analgesics as Ordered; Assist with Epidural Placement as Appropriate; Evaluate Therapeutic Effectiveness of Medication and Treatments (SN Devyn) Outcome: Patient will Report Absence or Relief of Pain Consistent with Established Pain Goal (SN Devyn) Status: Ongoing (SN Devyn) Outcome: Patient will have a Decrease in Signs and Symptoms of Discomfort (Rob aHckett, SN) Status: Ongoing (Rob Hackett, SN) Outcome: Pain will be Controlled During Procedures (Rob Hackett, SN) Status: Ongoing (Rob Hackett, SN) State: Risk For (Rob Hackett, SN) Related To: Labor and Delivery Process; Medical Interventions (Rbo Hackett, SN) Goal(s): Patient will have Decreased Anxiety and be able to Function at Acceptable Levels (Rob Hackett, SN) Interventions: Assess Verbal and Nonverbal Behavioral Indicators of Anxiety; Assist Patient to Identify and Verbalize Symptoms of Anxiety; Identify and Demonstrate Techniques to Control Anxiety; Assist Patient with Coping Mechanisms to Manage Anxiety; Provide Theraputic Touch for the Patient; Explain to Patient, Using a Calm Reassuring Approach and Nonmedical Terms, All Activities, Procedures, and Concerns; Instruct Patient and Family about Post Discharge Care, Limitations, Symptoms to Report and Resources Available (Rob Hackett, ) Outcome: Patient will Identify, Verbalize and Demonstrate Techniques to Control Anxiety (Rob Hackett, ) Status: Ongoing (Rob Hackett, SN) Outcome: Patient's Posture, Facial Expressions, Gestures and Activity Level will Reflect Decreased Anxiety (Rob Hackett, SN) Status: Ongoing (Rob Hackett, SN) Outcome: Patient will Verbalize a Sense of Control and/or Acceptance of the Situation (Rob Hackett, ) Status: Ongoing (Rob Hackett, SN) Outcome: Patient will Identify and Utilize Support Person (SN Devyn) Status: Ongoing (Rob Hackett, SN) Status: Ongoing (Rob Hackett, SN) State: Risk For (Rob Hackett, ) Related To: Labor and Delivery Process; Treatment and Procedures (Rob Hackett, SN) Goal(s): Patient will Accurately Verbalize Understanding of Plan of Care and Treatment; Patient and Family will Accurately Verbalize Understanding of the Disease Process (Rob Hackett, SN) Interventions: Assess Motivation and Willingness of Patient/Family to Learn; Assess Preferred Learning Mode: One to One Instruction, Reading, Videos, Group Discussion or Demonstration; Assess Barriers to Learning: Pain, Emotional State, Language Barrier, Cognitive Impairment, Visual or Hearing Deficits; Assess Patient and Family Knowledge of Disease Process, Medications and Treatment; Discuss Therapy and/or Treatment Options, Describe Rationale Behind Management, Therapy and Treatment Recommendations; Instruct Patient and Family on Signs and Symptoms to Report; Instruct Patient and Family on Medication Effects and Side Effects; Provide Appropriate and Timely Education Using Multiple Techniques; Provide Patient and Family with Support Group Information and Resources; Give Clear and Thorough Explanations and Demonstrations (Rob Hackett, SN) Outcome: Patient and Family will Verbalize Understanding of Condition, Treatment and Signs and Symptoms to Report (Rob Hackett, SN) Status: Ongoing (Rob Hackett, SN) Outcome: Patient will Identify Perceived Learning Needs and Express Motivation to Learn (Rob Hackett, SN) Status: Ongoing (Rob Hackett, SN) Outcome: Patient will Verbalize Understanding of Desired Content, and/or Performs Desired Skill Prior to Discharge (Rob Hackett, SN) Status: Ongoing (Rob Hackett, SN) Status: Ongoing (Rob Hackett, SN) State: Risk For (SN Devyn) Related To: Prolonged Labor or Induction (Rob Hackett, SN) Goal(s): The Patient will be Free of Infection, Vital Signs Stable and Lab Work within Normal Parameters (Rob Hackett, SN) Interventions: Instruct and Reinforce Proper Handwashing, Hygiene, and Care Techniques to Patient and Family; Monitor Vital Signs; Monitor Patient for the Following Signs of Infection: Fever, Abdominal Tenderness, Unusual Discharge; Monitor Aminiotic Fluid, Urine and Lochia for Color and Odor; Observe Wounds, Incisions and Invasive Line Sites for Redness, Drainage and Edema; Assess IV Sites per Hospital Policy; Monitor Lab and Test Results and Notify Provider of Abnormal Findings; Assess Nutritional Status and Promote Good Nutrition (Rob Hackett, SN) Outcome: Patient will Remain Free of Infection (Rob Hackett, SN) Status: Ongoing (Rob Hackett, SN) Outcome: Infection will be Recognized Early to Allow for Prompt Treatment (Rob Hackett, SN) Status: Ongoing (Rob Hackett, SN) Outcome: Patient will have Vital Signs Within Expected Range (Rob Hackett, SN) Status: Ongoing (Rob Hackett, SN) State: Risk For (Rob Hackett SN) Related To: Prolonged Labor or Induction (Rob Hackett, SN) Goal(s): Patient will Achieve and Maintain a Balanced Fluid Volume Status; Hemodynamically Stable (Rob Hackett, SN) Interventions: Monitor Vital Signs; Auscultate Breath Sounds; Monitor Patient for Skin Turgor, Mucous Membranes, Dry Skin, Weakness, Headaches and Confusion; Provide Oral Fluids as Ordered; Initiate and Maintain Intravenous Fluids as Ordered; Monitor Intake and Output as Indicated Per Patient Status; Accurately Measure Blood Loss; Monitor Lab and Test Results as Obtained and Notify Provider of Abnormal Findings; Monitor Patient's Weight (Rob Hackett, SN) Outcome: Patient will have Clear Lung Sounds (Rob Hackett, SN) Status: Ongoing (Rob Hackett, SN) Outcome: Patient will have Vital Signs within Expected Range (Rob Hackett, SN) Status: Ongoing (Rob Hackett, SN) Outcome: Urine Output will be within Expected Range (Rob Hackett, SN) Status: Ongoing (Rob Hackett, SN) Outcome: Patient will have Minimal Generalized or Upper Extremity Edema (Rob Hackett, SN) Status: Ongoing (Rob Hackett, SN) State: Risk For (Rob Hackett, ) Related To: Labor and Delivery Process (Rob Hackett, ) Goal(s): Patient will Remain Free from Injury (Rob Hackett, ) Interventions: Monitoring as per Hospital Protocol; Assess Neurological Status; Perform Risk Assessment of Patients with Induction and ; Perform Fall Risk Assessment and Prevention per Hospital Protocol; Perform DVT Risk Assessment and Prophylaxis per Hospital Protocol; Ensure that Oxygen, Suction, and Resuscitation Medications and Equipment are Readily Available; Confirm Patient ID Prior to Procedure(s) and Medication Administration per Hospital Policy (Rob Hackett, ) Outcome: Successful Fall Risk Prevention (Rob Hackett, SN) Status: Ongoing (Rob Hackett, SN) Outcome: Patient will Deliver without Adverse [place] (Rob Hackett, SN) Status: Ongoing (Rob Hackett, SN) Outcome: Patient's Neurological Status will Remain Stable (Rob Hackett, SN) Status: Ongoing (Rob Hackett, SN) State: Risk For (SN Devyn) Related To: Vaginal Delivery (Rob Hackett, SN) Goal(s): Patient will Maintain Optimal Skin Integrity, Free of Breakdown, Injury or Infection (Rob Hackett, ) Interventions: Complete Screening for Pressure Ulcer Risk and Initiate Protocol per Hospital Policy; Monitor Site of Skin Impairment for Color Changes, Redness, Swelling, Warmth, Pain or Other Signs of Infection; Encourage and Assist with Position Changes; Monitor Patient's Mobility Status; Provide Adequate Nutrition and Fluids; Teach Patient Appropriate Hygienic Care; Teach Patient/Family Skin Care Management (Rob Hackett, ) Outcome: Patient will not have Evidence of Injury Such as Skin Breakdown, Scrapes, Cuts, or Bruising (Rob Hackett, ) Status: Ongoing (Rob Hackett, ) Outcome: Patient will Report Any Altered Sensation or Pain at Site of Skin Impairment (SN Devyn) Status: Ongoing (Rob aHckett, ) Outcome: Patients Incisions and Wounds will be without Signs or Symptoms of Infection (SN Devyn) Status: Ongoing (SN Devyn) Outcome: Patient will Demonstrate Understanding of Plan to Heal Skin and Prevent Reinjury and Verbalize Risk Factors (SN Devyn) Status: Ongoing (SN Devyn) State: Not Applicable (Rob Hackett, )
[2016-03-30] MEDS ORDERED: IBUPROFEN 800 MG TABLET PO SCH (21:00)
[2016-03-30] MEDS: IBUPROFEN 800 MG TABLET PO SCH (23:14)
[2016-03-31] MEDS: OXYCODONE-ACETAMINOPHEN 5-325 MG TABLET PO PRN (04:12)
[2016-03-31] MEDS: IBUPROFEN 800 MG TABLET PO SCH ×3 (05:11→14:40)
--- NOTE | 2016-03-31 06:28 | L&D General Admission ---
General Admit Datetime Report Generated by CPN: 03/31/2016 06:00 INFORMATION Patient Age: 21 (03/11/2016 14:14:QS system process) EDC: 03/20/2016 00:00 (03/28/2016 17:35:SN Devyn) EDC per Ultrasound: 03/14/2016 00:00 (03/28/2016 17:35:SN Devyn) LMP: 06/14/2015 00:00 (03/28/2016 17:35:SN Devyn) : 1 (03/28/2016 17:35:SN Devyn) Para: 0 (03/28/2016 17:35:SN Devyn) Term: 0 (03/28/2016 17:35:SN Devyn) : 0 (03/28/2016 17:35:SN Devyn) Spontaneous Abortions: 0 (03/28/2016 17:35:SN Devyn) Induced Abortions: 0 (03/28/2016 17:35:Mavelyn Lew, SN) Livin (03/28/2016 17:35:Mavelyn Lew, SN) Cesareans: 0 (03/28/2016 17:35:Mavelyn Lew, SN) VBACs: 0 (03/28/2016 17:35:Mavelyn Lew, SN) Ectopic: 0 (03/28/2016 17:35:Mavelyn Lew, SN) Multiple Births: 0 (03/28/2016 17:35:Mavelyn Lew, SN) Baby, Number in Womb: 1 (03/28/2016 17:35:Mavelyn Lew, SN) CARE Primary Picker And Sorter Load And Unload: [facility] (03/28/2016 17:35:Mavelyn Lew, SN) Month of 1st Visit: September 2015 (03/28/2016 17:35:Mavelyn Lew, SN) Adequate Care: Yes (03/28/2016 17:35:Mavelyn Lew, SN) Prepregnancy Weight (lb): 174 (03/28/2016 17:35:Mavelyn Lew, SN) Prepregnancy Weight (kg): 79.1 (03/28/2016 17:35:QS system process) Height (in): 61 (03/30/2016 14:54:QS system process) ALLERGIES Medication Allergy: No (03/28/2016 17:35:Mavelyn Lew, SN) Medication Allergies: No Known Allergies (01/12/2016) (03/11/2016 14:14:QS system process) Latex Allergy: No Latex Allergies (03/28/2016 17:35:Luly Gonzalez RN) Food Allergies: NONE (03/28/2016 17:35:Luly Gonzalez RN) Environmental Allergies: NONE (03/28/2016 17:35:Luly Gonzalez RN) COMMUNICATION Primary Language: Guinean (03/28/2016 17:35:Mavelyn Lew, SN) Medical Tx Preferred Language: Guinean (03/28/2016 17:35:Mavelyn Lew, SN) Guinean Communication Ability: Speaks Guinean; Reads Guinean (03/28/2016 17:35:Luly Gonzalez RN) Communication Barrier(s): None (03/28/2016 17:35:Mavelyn Lew, SN) DEMOGRAPHICS Address: [address] [place] [id number] (03/11/2016 14:14:QS system process) Zipcode: [address] (03/11/2016 14:14:QS system process) Home (03/11/2016 14:14:QS system process) Work (03/28/2016 18:12:QS system process) SSN: [id number] (03/11/2016 14:14:QS system process) Next of Kin Name: HOA LEROY (03/28/2016 18:12:QS system process) Next of Kin (03/28/2016 18:12:QS system process) Next of Kin Relationship: MO (03/28/2016 18:12:QS system process) Date of : 1995 (03/11/2016 14:14:QS system process) Marital Status: (03/11/2016 14:14:QS system process) Sex: Female (03/11/2016 14:14:QS system process) Race: (03/11/2016 14:14:QS system process) Ethnicity: Non- or (03/11/2016 14:14:QS system process) Nondenominational: None (03/11/2016 14:14:QS system process) DRUG AND ALCOHOL USE Alcohol: No (03/28/2016 17:35:Mavelyn Lew, SN) Cigarettes: Never Smoker. [id number] (03/28/2016 17:35:Mavelyn Lew, SN) Marijuana: No (03/28/2016 17:35:Mavelyn Lew, SN) Cocaine: No (03/28/2016 17:35:Mavelyn Lew, SN) Other Illicit Drugs: No (03/28/2016 17:35:Mavelyn Lew, SN) VACCINE HISTORY Influenza Vaccine: Yes (03/28/2016 17:35:Mavelyn Lew, SN) Influenza Date: 12/25/2015 (03/28/2016 17:35:Mavelyn Lew, SN) Pneumococcal Vaccine: No (03/28/2016 17:35:Mavelyn Lew, SN) Tetanus Vaccine: Yes (03/28/2016 17:35:Mavelyn Lew, SN) Tdap Vaccine: Yes (03/28/2016 17:35:Mavelyn Lew, SN) Tdap Date: 12/25/2015 (03/28/2016 17:35:Mavelyn Lew, SN) Hepatitis B Vaccine: Yes (03/28/2016 17:35:Mavelyn Lew, SN) Arc Cutter: [facility] (03/28/2016 17:35:SN Devyn) Feeding Preference: Breast (03/28/2016 17:35:SN Devyn) Benefit of Breast Feed Discussed: Yes (03/28/2016 17:35:SN Devyn) Circumcision: Yes (03/28/2016 17:35:SN Devyn) Classes Attended: No (03/28/2016 17:35:SN Devyn) Tubal Ligation: No (03/28/2016 17:35:SN Devyn) Tubal Authorization Signed: N/A (03/28/2016 17:35:SN Devyn) Consent: N/A (03/28/2016 17:35:SN Devyn) Consent Signed: N/A (03/28/2016 17:35:SN Devyn) Pain Management Plans: Epidural (03/28/2016 17:35:SN Devyn) Plans for Labor and Delivery: None (03/28/2016 17:35:SN Devyn) Support Person: Luis Daniel Dinero (03/28/2016 17:35:SN Devyn) Support Person Relationship: (03/28/2016 17:35:SN Devyn) Cultural/Spritual Practice: No (03/28/2016 17:35:SN Devyn) Spir/Cult Dietary Needs: No (03/28/2016 17:35:SN Devyn) LIVING SITUATION/DISCHARGE PLAN Living Arrangements: House (03/28/2016 17:35:SN Devyn) Adequate Access to:: Electric; Heat; Refrigeration; Plumbing/Running water; Phone; Transportation (03/28/2016 17:35:SN Devyn) WIC Program: Yes (03/28/2016 17:35:SN Devyn) Discharge Department Assistant Person: Luis Daniel Metzlinson (03/28/2016 17:35:SN Devyn) Person to Help after Discharge: Luis Daniel Metzlinson (03/28/2016 17:35:SN Devyn) Currently Using Commun Resources: Yes (03/28/2016 17:35:SN Devyn) Outside Agency/[facility] Blindstitch: No (03/28/2016 17:35:SN Devyn) Car Seat for Discharge: Yes (03/28/2016 17:35:SN Devyn) Adoption Requested: No (03/28/2016 17:35:SN Devyn) Pt Contact w/ Post : N/A (03/28/2016 17:35:SN Devyn) LABS Blood Type: O Positive (03/28/2016 17:35:SN Devyn) Antibody Screen: negative (03/28/2016 17:35:SN Devyn) Rho(G) this : Not Applicable (03/28/2016 17:35:SN Devyn) Hemoglobin: 10.7 L (03/30/2016 07:09:QS system process) Hematocrit: 31.8 L (03/30/2016 07:09:QS system process) MCV: 86 (03/30/2016 07:09:QS system process) Group Beta Strep: negative (03/28/2016 17:35:SN Devyn) Gonorrhea: Negative (03/28/2016 17:35:SN Devyn) Chlamydia: Negative (03/28/2016 17:35:SN Devyn) RPR/VDRL: Nonreactive (03/28/2016 17:35:SN Devyn) HIV Exposure Test: Negative (03/28/2016 17:35:SN Devyn) Hepatitis B: Negative (03/28/2016 17:35:SN Devyn) Rubella: Immune (03/28/2016 17:35:SN Devny) OB/PREVIOUS HISTORY LMP: 06/14/2015 00:00 (03/28/2016 17:35:SN Devyn) Previous Procedures: None (03/28/2016 17:35:SN Devyn) Current Procedures: Ultrasound; NST (03/28/2016 17:35:SN Devyn) History of Previous : No (03/28/2016 17:35:SN Devyn) History of Gestational Diabetes: No (03/28/2016 17:35:SN Devyn) History of PIH: No (03/28/2016 17:35:SN Devyn) History of Incompetent Cervix: No (03/28/2016 17:35:SN Devyn) History of Placenta Previa/Abrup: No (03/28/2016 17:35:SN Devyn) History of Macrosomia: No (03/28/2016 17:35:SN Devyn) History of IUGR: No (03/28/2016 17:35:SN Devyn) History of Hemorrhage: No (03/28/2016 17:35:SN Devyn) History of Loss/Stillborn: No (03/28/2016 17:35:SN Devyn) History of : No (03/28/2016 17:35:SN Devyn) History of D (Rh) Sensitization: No (03/28/2016 17:35:SN Devyn) History Recurrent Loss/Stillborn: No (03/28/2016 17:35:SN Devyn) History Depression/PP Depression: No (03/28/2016 17:35:SN Devyn) History of Uterine Anomaly/SAURABH: No (03/28/2016 17:35:SN Devyn) History of Infertility: No (03/28/2016 17:35:SN Devyn) History of ART Treatment: No (03/28/2016 17:35:SN Devyn) History of SAURABH: No (03/28/2016 17:35:SN Devyn) Comments Obstetrical History: G1 - current - s>d- late entry to care at 15wk (03/28/2016 17:35:SN Devyn) MEDICAL HISTORY Med Hx Diabetes: No (03/28/2016 17:35:SN Devyn) Med Hx Hypertension: No (03/28/2016 17:35:SN Devyn) Med Hx Heart Disease: No (03/28/2016 17:35:SN Devyn) Med Hx Autoimmune Disorder: No (03/28/2016 17:35:SN Devyn) Med Hx Kidney Disease/UTI: No (03/28/2016 17:35:SN Devyn) Med Hx Neurologic/Epilepsy: No (03/28/2016 17:35:SN Devyn) Med Hx Psychiatric Disorders: No (03/28/2016 17:35:SN Devyn) Med Hx Hepatitis/Liver Disease: No (03/28/2016 17:35:SN Devyn) Med Hx Varicosities/Phlebitis: No (03/28/2016 17:35:SN Devyn) Med Hx Thyroid Dysfunction: No (03/28/2016 17:35:SN Devyn) Med Hx Trauma/Violence: No (03/28/2016 17:35:SN Devyn) Med Hx Blood Transfusion: No (03/28/2016 17:35:SN Devyn) Med Hx Pulmonary (Asthma,TB): No (03/28/2016 17:35:SN Devyn) Med Hx Breast: No (03/28/2016 17:35:SN Devyn) Med Hx MUSHROOM LABORER Surgery: No (03/28/2016 17:35:SN Devyn) Med Hx Hospitalization/Surgery: No (03/28/2016 17:35:SN Devyn) Med Hx Anesthetic Complications: No (03/28/2016 17:35:SN Devyn) Med Hx Abnormal Pap Smear: No (03/28/2016 17:35:SN Devyn) Other Medical Diseases: No (03/28/2016 17:35:SN Devyn) Med Hx Significant Family Hx: No (03/28/2016 17:35:Mavelyn Lew, SN) INFECTIOUS HISTORY Inf Hx Gonorrhea: No (03/28/2016 17:35:Rob Hackett SN) Inf Hx Chlamydia: No (03/28/2016 17:35:Rob Hackett SN) Inf Hx Syphilis: No (03/28/2016 17:35:Rob Hackett SN) Inf Hx HIV/AIDS: No (03/28/2016 17:35:Rob Hackett SN) Inf Hx Human Papilloma Virus: No (03/28/2016 17:35:Rob Hackett SN) Inf Hx Pt/Partner Genital Herpes: No (03/28/2016 17:35:Rob Hackett SN) Inf Hx Tuberculosis/Exposure: No (03/28/2016 17:35:Rob Hackett SN) Inf Hx Hepatitis B,C: No (03/28/2016 17:35:Rob Hackett SN) Inf Hx Rash or Viral Illness: No (03/28/2016 17:35:Rob Hackett SN) GENETIC HISTORY Gen Hx Age >=35 at ARELY: No (03/28/2016 17:35:SN Devyn) Gen Hx Thalassemia: No (03/28/2016 17:35:SN Devyn) Gen Hx Congenital Heart Defect: No (03/28/2016 17:35:SN Devyn) Gen Hx Neural Tube Defect: No (03/28/2016 17:35:SN Devyn) Gen Hx Down's Syndrome: No (03/28/2016 17:35:SN Devyn) Gen Hx [place]-Sachs: No (03/28/2016 17:35:SN Devyn) Gen Hx Vannessa: No (03/28/2016 17:35:SN Devyn) Gen Hx Familial Dysautonomia: No (03/28/2016 17:35:SN Devyn) Gen Hx Sickle Cell Disease/Trait: No (03/28/2016 17:35:SN Devyn) Gen Hx Hemophilia/Blood Disorder: No (03/28/2016 17:35:SN Devyn) Gen Hx Muscular Dystrophy: No (03/28/2016 17:35:SN Devyn) Gen Hx Cystic Fibrosis: No (03/28/2016 17:35:SN Devyn) Gen Hx Hunting[place] Chorea: No (03/28/2016 17:35:SN Devyn) Gen Hx Mental Retardation/Autism: No (03/28/2016 17:35:SN Devyn) Gen Hx Tested for Fragile X: No (03/28/2016 17:35:SN Devyn) Gen Hx Other Inher/Chromosomal: No (03/28/2016 17:35:SN Devyn) Gen Hx Maternal Metabolic DO: No (03/28/2016 17:35:SN Devyn) Gen Hx Pt Father or FOB Defect: No (03/28/2016 17:35:SN Devyn) Gen Hx Other Genetic History: No (03/28/2016 17:35:SN Devyn) Gen Hx Drugs/Meds since LMP: No (03/28/2016 17:35:SN Devyn)
--- NOTE | 2016-03-31 06:28 | L&D Current Admission ---
Current Admit Datetime Report Generated by CPN: 03/31/2016 06:00 ADMISSION INFORMATION Current Admit Date/Time: 03/28/2016 18:57 (03/28/2016 18:57:SN Devyn) Reason for Admission: Induction of Labor (03/28/2016 18:57:SN Devyn) Chief Complaint: Scheduled Induction of Labor (03/29/2016 19:22:Lennie Humphreys RN) Medications During : Vitamin (03/28/2016 18:57:SN Devny) EGA per Dates: 41.1 (03/28/2016 18:57:QS system process) EGA per US: 42.0 (03/28/2016 18:57:QS system process) Method of Arrival: Ambulatory (03/28/2016 18:57:SN Devyn) Admitted From: Home (03/28/2016 18:57:SN Devyn) Reason for Induction: Postterm (03/28/2016 18:57:SN Devyn) Records Available: Yes (03/28/2016 18:57:SN Devyn) General Admission Information: Reviewed; Updated; Confirmed (03/28/2016 18:57:SN Devyn) General Admission Reviewed By: Bacilio Hancock RN (03/28/2016 18:57:SN Devyn) BELONGINGS/ADVANCED DIRECTIVES Valuables/Personal Effects: Cell Phone (03/28/2016 18:57:SN Devyn) Other Belongings: See belonging sheet (03/28/2016 18:57:SN Devyn) Disposition of Belongings: Kept with Patient (03/28/2016 18:57:SN Devyn) Advance Direct for Healthcare: No, and Wants No Information (03/28/2016 18:57:SN Devyn) Durable Power of Superintendent Marine: No (03/28/2016 18:57:SN Devyn) Living Will: No (03/28/2016 18:57:SN Devyn) Organ Donor: Yes (03/28/2016 18:57:SN Devyn) Pt Rights Information Given: Yes (03/28/2016 18:57:SN Devyn) Pt Understands Pt Rights: Yes (03/28/2016 18:57:SN Devyn) LEARNING ASSESSMENT Knowledge Level: Understands L_D Process; Understands Care Activities; Had Pre-Hospital Education; Understands Diagnosis (03/28/2016 18:57:SN Devyn) Barriers to Learning: None (03/28/2016 18:57:SN Devyn) Learning Readiness: Motivated (03/28/2016 18:57:SN Devyn) Learns Best By: 1 to 1 Instruction (03/28/2016 18:57:SN Devyn) Learning Needs: Labor and Delivery Process; Pain Management; Symptoms to Report; Treatment Plan; Medication; Diagnosis; Nutrition; Equipment; Infant Care; Community Resources (03/28/2016 18:57:SN Devyn) DOMESTIC VIOLANCE SCREENING Dom Viol Threatened/Hurt: No (03/28/2016 18:57:SN Devyn) Hx of Abuse/Neglect past 2yrs: No (03/28/2016 18:57:SN Devyn) Feel Unsafe Going Home: No (03/28/2016 18:57:SN Devyn) Addt'l Observ Indicating Abuse: No (03/28/2016 18:57:SN Devyn) Reason Unable to Complete Screen: N/A, Screen Completed (03/28/2016 18:57:SN Devyn) Considered Personal Harm/Suicide: No (03/28/2016 18:57:SN Devyn) NUTRITIONAL/FUNCTIONAL SCREENING Problem with Appetite >5 Days: No (03/28/2016 18:57:SN Devyn) Chew/Swallow Difficulties: No (03/28/2016 18:57:SN Devyn) Inappropriate Wt Gain/Loss: No (03/28/2016 18:57:SN Devyn) Presence Skin Breakdown/Ulcer: No (03/28/2016 18:57:SN Devyn) Special Diet: No (03/28/2016 18:57:SN Devyn) Pt Requests Prepared Foods Associate Visit: No (03/28/2016 18:57:SN Devyn) Hx of Any of the Following?: N/A (03/28/2016 18:57:SN Devyn) New Diagnosis of: N/A (03/28/2016 18:57:SN Devyn) Requires Assist w/Ambulation: No (03/28/2016 18:57:SN Devyn) Uses Assist Device to Ambulate: No (03/28/2016 18:57:SN Devyn) Pt Requires Help w/ADL's: No (03/28/2016 18:57:SN Devyn)
[2016-03-31 08:59] VITALS: BP 108/67
[2016-03-31] MEDS: PRENATAL VITAMIN W-O CA NO5/FE FUMARATE/FA CAPSULE PO SCH (10:06)
[2016-03-31] MEDS: DOCUSATE SODIUM 100 MG CAPSULE PO SCH ×2 (10:06→17:45)
--- NOTE | 2016-03-31 10:18 | PDOC DISCHARGE SUMMARY ---
Final Diagnosis Discharge Date: 03/31/16 - Final Diagnosis (1) Status post primary low transverse section Is this a current diagnosis for this admission?: Yes Discharge Data - Discharge Medication Home Medications: Vit/Iron Fumarate/FA [ Tablet] 1 each PO DAILY 03/28/16 Docusate Sodium [Colace 100 mg Capsule] 100 mg PO BID #30 capsule 03/31/16 Ferrous Sulfate [Feosol 325 mg Tablet] 325 mg PO BID #30 tab 03/31/16 Ibuprofen [Motrin 800 mg Tablet] 800 mg PO Q8HP PRN #90 tablet 03/31/16 Oxycodone HCl/Acetaminophen [Percocet 5-325 mg Tablet] 1 tab PO Q4HP PRN #30 tablet 03/31/16 Reason(s) for Admission: Induction of Labor Procedures: NST, Ultrasound Intrapartum Procedure(s): : Low Cervical, Transverse - Data Baby 1 Male at 1 minute: 9 at 5 minutes: 9 Weight: 3875 kg Home with Mother: Yes Complications: No - Diagnosis Test Laboratory: Temp Pulse Resp BP Pulse Ox 98.0 F 86 18 108/67 100 03/31/16 08:12 03/31/16 08:12 03/31/16 08:12 03/31/16 08:06 03/31/16 08:12 03/28/16 03/28/16 03/30/16 18:40 18:49 07:09 RBC 4.23 3.69 L Hgb 11.9 L 10.7 L Hct 36.4 31.8 L Urine Opiates Screen NEGATIVE - Discharge information/Instructions Discharge Activity: Activity As Tolerated, Balance Activity w/Rest, No Driving, No Lifting Over 10 Pounds, No Lifting/Push/Pulling, Pelvic Rest, No tub bath Discharge Diet: Regular Disposition: HOME, SELF-CARE Follow up with: [facility] in: 1, Weeks - incision check Physical Exam (OB) Vital Signs: Temp Pulse Resp BP Pulse Ox 98.0 F 86 18 108/67 100 03/31/16 08:12 03/31/16 08:12 03/31/16 08:12 03/31/16 08:06 03/31/16 08:12 Intake & Output 03/30/16 03/31/16 04/01/16 06:59 06:59 06:59 Intake Total 1675 Output Total 700 1500 Balance -700 175 - General General Appearance: Appears well In distress: None - Dressing Removed: No - opsite Incision: Well Approximated - echimotic region (nickel size) located directly below mid point on incision Closure Type: opsite - Lochia Lochia Amount: Scant < 10 ml Lochia Color: Rubra/Red - Abdomen Description: Soft Hernia Present: No Bowel Sounds: Normoactive Flatus Presence: Present Stool: No Fundal Description: Firm, Midline Fundal Height: u/u - u/2 - Respiratory Respiratory Status: No respiratory distress Breath sounds: Clear - Cardiovascular Rhythm: Regular - Genitourinary Female External exam: Normal - Extremities Upper extremity: Normal inspection Lower extremities: Normal inspection - Neurological Orientation: AAOx4 - Psychological Associated symptoms: Normal affect, Normal mood - bonding well with baby, without difficulty
== END 2016-03-31 18:33 | disposition home or self-care (01) | DRG 766 ==
LOC: LR 18:11 → 2S 03-30 00:02
PROVIDERS: ADMIT Obstetrics & Gynecology; ATTEND Obstetrics & Gynecology
PROC: 4A0HXCZ Measurement of Products of Conception, Cardiac Rate, External Approach (ICD-10-PCS; 2016-03-28)
PROC: 10D00Z1 Extraction of Products of Conception, Low, Open Approach (ICD-10-PCS; principal; 2016-03-29)
PROC: 3E0P7GC Introduction of Other Therapeutic Substance into Female Reproductive, Via Natural or Artificial Opening (ICD-10-PCS; 2016-03-29)
DX: O64.0XX0 Obstructed labor due to incomplete rotation of fetal head, not applicable or unspecified (principal); O48.0 Post-term pregnancy; E66.9 Obesity, unspecified; Z68.38 Body mass index [BMI] 38.0-38.9, adult; Z3A.41 41 weeks gestation of pregnancy; Z37.0 Single live birth
CPT/HCPCS: 1961; 36415; 80307; 81005; 85025; 85027; 86592; 86850; 86900; 86901; 94799; J0131; J0690; J1170; J1200; J1885; J2250; J2405; J2590; J3010; J3490